=== PATIENT | male | born 1970 | race Caucasian/White ===

== ENCOUNTER 2021-01-12 08:42 | Outpatient (CLI) | payer OTHER, SELFPAY ==
[2021-01-12 18:36] LABS: Basophils Percent Auto 0.6 % (0.2-1.2); Eosinophils Absolute Auto 0.2 K/mm3 (0-0.3); Eosinophils Percent Auto 3.2 % (0-4.4); Hematocrit 45.4 % (42.0-52.0); Hemoglobin 15.1 g/dL (14.0-18.0); Immature Granulocyte Absolute 0.02 K/mm3 (0.00-0.031); Immature Granulocyte Percent A 0.3 % (0-0.5); Lymphocytes Absolute Auto 1.87 K/mm3 (0.9-3.2); Lymphocytes Percent Auto 28.3 % (18.3-44.2); Mean Corpuscular HGB Conc 33.3 g/dl (32-36); Mean Corpuscular Hemoglobin 30.1 pg (26-34); Mean Corpuscular Volume 90.6 fl (80-100); Mean Platelet Volume 9.8 fl (7.4-10.4); Monocytes Absolute Auto 0.5 K/mm3 (0.1-0.6); Neutrophils Absolute Auto 3.9 K/mm3 (1.3-6.7); Neutrophils Percent Auto 59.6 % (45.5-73.1); Platelet Count Result 334 k/mm3 (150-375); Red Blood Count 5.01 M/mm3 (4.6-6.20); Red Cell Distribution Width 12.5 % (11.5-14.5); White Blood Count 6.6 K/mm3 (4.5-10.0)
[2021-01-12 18:39] LABS: Add Urine Microscopic? NO; Appearance Urine Clear (Clear); Bilirubin Urine Negative (Negative); Blood Urine Negative (Negative); Color Urine Yellow (Yellow); Glucose Urine UA Negative (Negative); Ketones Urine Negative (Negative); Leukocyte Esterase Ur Negative LEU/UL (Negative); Nitrate Urine Negative (Negative); Protein Urine Negative (Negative); Specific Grav Ur 1.016 (1.001-1.035); Urobilinogen Urine Negative mg/dL (<2.0)
[2021-01-12 18:52] LABS: Alanine Aminotransferase 33 U/L (4-50); Albumin Level 4.3 g/dL (3.5-5.1); Alkaline Phosphatase 79 U/L (38-126); Anion Gap 9 mmol/L (8-16); Aspartate Amino Transferase 35 U/L (17-59); Bilirubin,Total 0.6 mg/dL (0.2-1.3); Blood Urea Nitrogen 8 mg/dL (9-20); Calcium 9.2 mg/dL (8.4-10.2); Carbon Dioxide 27 mmol/L (22-30); Chloride 102 mmol/L (98-107); Cholesterol 206 mg/dL (0-200); Estimated Glomerular Filt Rate > 60; Glucose 104 mg/dL (65-110); HDL Direct 45 mg/dL; Potassium 3.8 mmol/L (3.4-5.0); Sodium 138 mmol/L (137-145); Triglycerides 125 mg/dL (<150)
[2021-01-12 19:03] LABS: LDL Cholesterol Direct 119 mg/dL
[2021-01-12 19:21] LABS: Thyroid Stimulating Hormone 0.741 uIU/mL (0.465-4.680)
[2021-01-12 19:52] LABS: Vitamin D 25 Hydroxy 26.4 ng/mL
[2021-01-12 19:56] LABS: Folic Acid 3.9 ng/mL (2.76->20)
[2021-01-17 15:19] LABS: Testosterone Free 54.2 pg/mL (35.0-155.0); Testosterone Total 437 ng/dL (250-1100)
== END 2021-01-12 08:43 | disposition home or self-care (01) ==
LOC: ANHBWCLAB 08:43
PROVIDERS: PCP Family Medicine; Visit Provider Family Medicine
DX: I20.1 Angina pectoris with documented spasm (principal); Z13.9 Encounter for screening, unspecified; Z82.49 Family history of ischemic heart disease and other diseases of the circulatory system; Z82.62 Family history of osteoporosis; N99.89 Other postprocedural complications and disorders of genitourinary system; Z79.899 Other long term (current) drug therapy
CPT/HCPCS: 36415; 80053; 80061; 81003; 82306; 82607; 82746; 84402; 84403; 84443; 85025

== ENCOUNTER 2021-05-08 09:43 | Outpatient (RCR) | payer OTHER, SELFPAY ==
[2021-05-08] MEDS: ACETAMINOPHEN 325 MG TABLET 650 MG PO (16:00)
[2021-05-08] MEDS: diphenhydrAMINE HCl CAP 25 MG CAPSULE PO (16:00)
[2021-05-08] MEDS: FAMOTIDINE 20 MG TABLET PO (16:00)
[2021-05-08 16:22] VITALS: BP 101/80; PULSE 96; RESP 14; TEMP 36.8; O2SAT 98
[2021-05-08 17:37] VITALS: BP 106/69
--- NOTE | 2021-05-09 10:10 | PC.NURSE ---
Called Mr Horta and had to leave a message for him to call us back.
== END 2021-05-08 17:00 | disposition home or self-care (01) ==
LOC: AMCINF 09:43
PROVIDERS: PCP Family Medicine; Visit Provider Internal Medicine Hematology & Oncology
DX: U07.1 COVID-19 (principal)
CPT/HCPCS: A9270; M0245; Q0245

== ENCOUNTER 2021-09-10 15:23 | Outpatient (CLI) | payer OTHER, SELFPAY ==
[2021-09-10 18:44] LABS: Hematocrit 45.3 % (42.0-52.0); Hemoglobin 15.2 g/dL (14.0-18.0); Mean Corpuscular HGB Conc 33.6 g/dl (32-36); Mean Corpuscular Hemoglobin 30.6 pg (26-34); Mean Corpuscular Volume 91.3 fl (80-100); Mean Platelet Volume 9.9 fl (7.4-10.4); Platelet Count Result 306 k/mm3 (150-375); Red Blood Count 4.96 M/mm3 (4.6-6.20); Red Cell Distribution Width 12.1 % (11.5-14.5); White Blood Count 6.4 K/mm3 (4.5-10.0)
[2021-09-10 19:03] LABS: Alanine Aminotransferase 39 U/L (4-50); Albumin Level 4.3 g/dL (3.5-5.1); Alkaline Phosphatase 74 U/L (38-126); Anion Gap 9 mmol/L (8-16); Aspartate Amino Transferase 29 U/L (17-59); Bilirubin,Total 0.5 mg/dL (0.2-1.3); Blood Urea Nitrogen 8 mg/dL (9-20); Carbon Dioxide 26 mmol/L (22-30); Chloride 102 mmol/L (98-107); Cholesterol 253 mg/dL (0-200); Estimated Glomerular Filt Rate > 60; Glucose 101 mg/dL (65-110); HDL Direct 45 mg/dL; Potassium 3.8 mmol/L (3.4-5.0); Sodium 137 mmol/L (137-145); Triglycerides 338 mg/dL (<150)
[2021-09-10 19:15] LABS: LDL Cholesterol Direct 137 mg/dL
== END 2021-09-10 15:24 | disposition home or self-care (01) ==
LOC: ANHBWCLAB 15:25
PROVIDERS: PCP Family Medicine; Visit Provider Family Medicine
DX: Z00.00 Encounter for general adult medical examination without abnormal findings (principal); I20.1 Angina pectoris with documented spasm; K52.9 Noninfective gastroenteritis and colitis, unspecified; M19.90 Unspecified osteoarthritis, unspecified site; M54.9 Dorsalgia, unspecified
CPT/HCPCS: 36415; 80053; 80061; 85027

== ENCOUNTER 2022-01-03 07:46 | Outpatient (CLI) | payer OTHER, SELFPAY ==
--- NOTE | 2022-01-03 08:00 | ECHO_ITS ---
Patient Info Name: Jose Enrique Horta Age: 51 years : 1970 Gender: Male Ht: 68 in Wt: 200 lbs BSA: 2.11 m2 HR: 64 bpm BP: 137 / 96 mmHg Technical Quality: Good Exam Date: 01/03/2022 8:23 AM Exam Location: [facility] Patient Status: Outpatient Admit Date: 01/03/2022 Staff Ordering Physician: Deny Haley MD Dry Placer Machine Operator: Lin Jauregui RDCS Attending Provider: Deny Haley MD Referring Physician: Tera ALLEN; Exam Type: CA echo doppler color flow Study Info Indications R00.0 - Tachycardia, unspecified Complete two-dimensional, color flow and Doppler transthoracic echocardiogram is performed. Summary 1. Complete two-dimensional, color flow and Doppler transthoracic echocardiogram is performed. 2. Left ventricular chamber dimension is normal. 3. Left ventricular systolic function is normal, estimated at 60-65%. 4. The left ventricular diastolic function is grade II diastolic dysfunction. 5. E/e' 7 is not elevated. 6. Global longitudinal strain is normal at -17.2%. 7. There is mild aortic valve sclerosis. 8. There is trace tricuspid valve regurgitation. 9. No pulmonary hypertension, estimated pulmonary arterial systolic pressure is 22 mmHg. Left Ventricle E/e' 7 is not elevated. Global longitudinal strain is normal at -17.2%. Left ventricular chamber dimension is normal. Left ventricular systolic function is normal, estimated at 60-65%. The left ventricular diastolic function is grade II diastolic dysfunction. Right Ventricle Right ventricular systolic function is normal and with normal TAPSE 1.7 cm. Right ventricular chamber dimension is normal. Left Atria Left atrial chamber dimension is normal. Right Atria Right atrial chamber dimension is normal. Aortic Valve The aortic valve is trileaflet. There is mild aortic valve sclerosis. There is no aortic valve stenosis. There is no aortic valve regurgitation. Pulmonic Valve There is no pulmonic regurgitation. Mitral Valve There is no mitral valve stenosis. There is no mitral valve regurgitation. Tricuspid Valve There is trace tricuspid valve regurgitation. No pulmonary hypertension, estimated pulmonary arterial systolic pressure is 22 mmHg. Pericardium/Pleural There is no pericardial effusion. Inferior Vena Cava Normal inferior vena cava with >50% collapse upon inspiration consistent with normal right atrial pressure, 5 mmHg. Aorta The aortic root size at the sinus of Valsalva is normal. Left Ventricular Outflow Tract Name Value Normal LVOT 2D LVOT Diameter 2.0 cm LVOT Doppler LVOT Peak Gradient 3 mmHg LVOT Mean Gradient 2 mmHg LVOT VTI 18 cm LVOT VTI/AV VTI Ratio 0.8 LVOT Stroke Volume 60 ml LVOT CO 4.2 l/min LVOT CI 2.0 l/min/m2 Pulmonic Valve Name Value Normal -----
== END 2022-01-03 07:47 | disposition home or self-care (01) ==
PROVIDERS: PCP Family Medicine; Visit Provider Family Medicine
DX: R00.0 Tachycardia, unspecified (principal); I20.1 Angina pectoris with documented spasm; Z13.9 Encounter for screening, unspecified; Z82.49 Family history of ischemic heart disease and other diseases of the circulatory system
CPT/HCPCS: 93306

== ENCOUNTER 2022-02-04 08:26 | Outpatient (CLI) | payer OTHER, SELFPAY ==
--- NOTE | 2022-02-04 08:46 | EST_ITS ---
Patient Info Name: Jose Enrique Horta Age: 51 years : 1970 Gender: Male Ht: 69 in Wt: 200 lbs BSA: 2.12 m2 Exam Date: 02/04/2022 9:58 AM Exam Location: [facility] Stress Patient Status: Outpatient Admit Date: 02/04/2022 Staff Ordering Physician: Kodi Licea DO Attending Provider: Kodi Licea DO Exercise Technologist: Lin Jauregui RDCS Exercise Physician: Kodi Licea DO Exam Type: CA stress test treadmill Study Info Indications R07.9 - Chest pain, unspecified A treadmill exercise stress test was performed. Summary 1. 1. Abnormal Travis exercise stress test for ischemic ST changes by ECG criteria. 2. 2. Due to significant ST depression, stress test terminated early. 3. 3. Appropriate HR response to exercise. 4. 4. Appropriate HR recovery at 1 minute post exercise. 5. 5. Patient informed of the above results. Protocol: Travis Stress ECG Details Stage: REST Duration (min): 0 min : 41 sec Speed (mph): 0.0 Grade (%): 0 HR (bpm): 67 SBP (mmHg): 123 DBP (mmHg): 93 METS: --- Stage: REST Duration (min): 5 min : 18 sec Speed (mph): 0.0 Grade (%): 0 HR (bpm): 81 SBP (mmHg): 123 DBP (mmHg): 93 METS: --- Stage: STAGE 1 Duration (min): 1 min : 0 sec Speed (mph): 1.7 Grade (%): 10 HR (bpm): 104 SBP (mmHg): 123 DBP (mmHg): 93 METS: --- Stage: STAGE 1 Duration (min): 2 min : 0 sec Speed (mph): 1.7 Grade (%): 10 HR (bpm): 110 SBP (mmHg): 123 DBP (mmHg): 93 METS: --- Stage: STAGE 1 Duration (min): 3 min : 0 sec Speed (mph): 1.7 Grade (%): 10 HR (bpm): 121 SBP (mmHg): 130 DBP (mmHg): 86 METS: --- Stage: RECOVERY Duration (min): 0 min : 59 sec Speed (mph): 0.0 Grade (%): 0 HR (bpm): 87 SBP (mmHg): 130 DBP (mmHg): 86 METS: --- Stage: RECOVERY Duration (min): 1 min : 59 sec Speed (mph): 0.0 Grade (%): 0 HR (bpm): 75 SBP (mmHg): 130 DBP (mmHg): 86 METS: --- Stage: RECOVERY Duration (min): 2 min : 59 sec Speed (mph): 0.0 Grade (%): 0 HR (bpm): 72 SBP (mmHg): 163 DBP (mmHg): 91 METS: --- Stage: RECOVERY Duration (min): 3 min : 59 sec Speed (mph): 0.0 Grade (%): 0 HR (bpm): 75 SBP (mmHg): 153 DBP (mmHg): 97 METS: --- Stage: RECOVERY Duration (min): 4 min : 59 sec Speed (mph): 0.0 Grade (%): 0 HR (bpm): 75 SBP (mmHg): 148 DBP (mmHg): 95 METS: --- Stage: RECOVERY Duration (min): 5 min : 59 sec Speed (mph): 0.0 Grade (%): 0 HR (bpm): 83 SBP (mmHg): 148 DBP (mmHg): 95 METS: --- Stage: RECOVERY Duration (min): 6 min : 59 sec Speed (mph): 0.0 Grade (%): 0 HR (bpm): 78 SBP (mmHg): 135 DBP (mmHg): 104 METS: --- Stage: RECOVERY Duration (min): 7 min : 59 sec Speed (mph): 0.0 Grade (%): 0 HR (bpm):
== END 2022-02-04 08:27 | disposition home or self-care (01) ==
PROVIDERS: PCP Family Medicine; Visit Provider Internal Medicine Cardiovascular Disease
DX: R07.9 Chest pain, unspecified (principal)
CPT/HCPCS: 93017

== ENCOUNTER 2022-02-14 02:11 | Day surgery (SDC) | payer OTHER, SELFPAY ==
[2022-02-13 14:50] VITALS: BMI 30.3
[2022-02-14] VITALS (17 sets, daily range): BP systolic 96–139; BP diastolic 70–94; PULSE 70–83; RESP 16; TEMP 36.4–36.6; O2SAT 94–100; BMI 32.1
[2022-02-14 07:28] LABS: Basophils Absolute Auto 0.1 K/mm3 (0.0-0.1); Basophils Percent Auto 0.7 % (0.2-1.2); Eosinophils Absolute Auto 0.3 K/mm3 (0-0.3); Eosinophils Percent Auto 4.8 % (0-4.4); Hematocrit 48.6 % (42.0-52.0); Hemoglobin 16.7 g/dL (14.0-18.0); Immature Granulocyte Absolute 0.04 K/mm3 (0.00-0.031); Immature Granulocyte Percent A 0.6 % (0-0.5); Lymphocytes Absolute Auto 2.45 K/mm3 (0.9-3.2); Lymphocytes Percent Auto 36.7 % (18.3-44.2); Mean Corpuscular HGB Conc 34.4 g/dl (32-36); Mean Corpuscular Hemoglobin 30.7 pg (26-34); Mean Corpuscular Volume 89.3 fl (80-100); Mean Platelet Volume 8.9 fl (7.4-10.4); Monocytes Absolute Auto 0.8 K/mm3 (0.1-0.6); Monocytes Percent Auto 11.4 % (2.6-8.5); Neutrophils Absolute Auto 3.1 K/mm3 (1.3-6.7); Neutrophils Percent Auto 45.8 % (45.5-73.1); Platelet Count Result 290 k/mm3 (150-375); Red Blood Count 5.44 M/mm3 (4.6-6.20); Red Cell Distribution Width 12.4 % (11.5-14.5); White Blood Count 6.7 K/mm3 (4.5-10.0)
[2022-02-14 07:48] LABS: Anion Gap 14 mmol/L (8-16); Blood Urea Nitrogen 11 mg/dL (9-20); Calcium 9.1 mg/dL (8.4-10.2); Carbon Dioxide 28 mmol/L (22-30); Chloride 101 mmol/L (98-107); Cholesterol 229 mg/dL (0-200); Estimated CRCL calculation 122 ml/min; Estimated Glomerular Filt Rate > 60; Glucose 103 mg/dL (65-110); HDL Direct 46 mg/dL; Potassium 3.5 mmol/L (3.4-5.0); Sodium 143 mmol/L (137-145); Triglycerides 259 mg/dL (<150)
[2022-02-14 07:59] LABS: LDL Cholesterol Direct 124 mg/dL
--- NOTE | 2022-02-14 08:38 | WPDHPUPDATE1 ---
History and Physical Update Update Date/Time: 02/14/22 08:38 History and Physical has been reviewed, including an updated exam of the patient. There are NO changes in the patient's condition. Risks, benefits, and alternatives have been discussed and questions answered. Patient agrees to proceed with procedure.
--- NOTE | 2022-02-14 08:39 | WPDMODSED ---
Moderate Sedation Note-Pt Data Patient Data Diagnosis: Abnormal stress test Present Complaint: Abnormal stress test Procedure to be performed/Plan: Cardiac catheterization Allergies Allergy/AdvReac Type Severity Reaction Status Date / Time No Known Allergies Allergy Verified 02/14/22 07:22 Home Medications Medication Instructions Recorded Confirmed Type ibuprofen 200 mg tablet (Advil) 200 mg PO Q6H PRN Back Pain 10/27/20 02/13/22 History morphine 15 mg capsule 15 mg PO TID 10/27/20 02/13/22 History oxycodone-acetaminophen 10 mg-325 1 tablet PO Q8H 10/27/20 02/13/22 History mg tablet omega 4-jsl-zpe-fish oil 1,000 mg 1 cap PO DAILY 01/11/22 02/13/22 History (120 mg-180 mg) capsule (Fish Oil) pravastatin 20 mg tablet 20 mg PO DAILY #30 tabs 01/11/22 02/13/22 Rx aspirin 81 mg tablet,delayed 81 mg PO DAILY 02/04/22 02/13/22 History release (Adult Aspirin Regimen) Current Medications: Active Medications Sodium Chloride (Normal Saline Iv) 500 mls @ 100 mls/hr IV CONT .Q5H SARBJIT Sedation/Anesthesia: No previous sedation/anesthesia problems (including family history). [facility] Past Medical History Medical History Back pain Colitis Osteoarthritis Family History Family History Mother Hypertension Heart problem Sibling Heart problem Hypertension Grandparent Heart problem Social History Social History Smoking status: Never smoker Tobacco type: smokeless tobacco Smokeless tobacco user: chewing tobacco Alcohol intake: current Substance use: never Spiritual care concerns: No Mod Sed Physical Exam Physical Exam Pre Procedural Exam: Normal: Appearance, Lungs, Heart Rate, Heart Rhythm, Neuro Exam, Abdomen, Extremities and Skin Hours since solid foods: 8 Hours since liquid intake: 8 Mallampati Classification: class III Internal Medicine - PN: Obj Da Vital Signs Vital Signs: Vital Signs - 24 hr 02/14/22 07:25 Temperature 36.6 C Pulse Rate 83 Respiratory Rate 16 Blood Pressure 139/94 H Pulse Oximetry 100 Oxygen Delivery Room Air Meds/Results Medications: Active Medications Generic Name Dose Route Start Last Admin Trade Name Maxq PRN Reason Stop Dose Admin Sodium Chloride 500 mls @ 100 mls/hr 02/14/22 07:00 Normal Saline Iv IV CONT .Q5H SARBJIT Labs CBC & Chem 7: 02/14/22 07:20 02/14/22 07:20 Labs: Laboratory Results - last 24 hr 02/14/22 02/14/22 07:20 07:20 WBC 6.7 RBC 5.44 Hgb 16.7 Hct 48.6 MCV 89.3 MCH 30.7 MCHC 34.4 RDW 12.4 Plt Count 290 MPV 8.9 Immature Gran % (Auto) 0.6 H Neut % (Auto) 45.8 Lymph % (Auto) 36.7 [place] % (Auto) 11.4 H Eos % (Auto) 4.8 H Baso % (Auto) 0.7 Lymph # (Auto) 2.45 [place] # (Auto) 0.8 H Eos # (Auto) 0.3 Baso # (Auto) 0.1 Abs Immat Gran (auto) 0.04 H Absolute Neuts (auto) 3.1 Absolute Nucleated RBC 0.0 Nucleated RBC % 0.0 Sodium 143 Potassium 3.5 Chloride 101 Carbon Dioxide 28 Anion Gap 14 BUN 11 Creatinine 0.70 Estim Creat Clear Calc 122 Estimated GFR > 60 Glucose 103 Calcium 9.1 Triglycerides 259 H Cholesterol 229 H LDL Cholesterol Direct 124 HDL Direct 46 ASA Classification/Sedation ASA Classification/Sedation ASA Class: II Emergent: No Risks: Risks, benefits and alternatives explained and patient/family accepted plan for sedation. Patient re-evaluated immediately prior to sedation.
--- NOTE | 2022-02-14 09:59 | ECG_ITS ---
Measurements Intervals [place] Rate: 76 P: 24 GA: 199 QRS: 16 QRSD: 87 T: -7 QT: 376 QTc: 423 Interpretive Statements SINUS RHYTHM RSR' IN V1 OR V2, PROBABLY NORMAL VARIANT CONSIDER INFERIOR INFARCT, AGE INDETERMINATE ABNORMAL ECG NO PREVIOUS ECG AVAILABLE FOR COMPARISON Electronically Signed On 02-14-2022 10:22:53 CDT by Kodi Licea D.O.
[2022-02-14] MEDS: SODIUM CHLORIDE 0.9% IV 500 ML 100 ML IV CONT (10:45)
--- NOTE | 2022-02-14 13:45 | SUR.PHASEII ---
iv d/c tip intact. education given to patient with at bedside. written education/dc instruction/new prescriptions/and work excuse note given to patient. he is able to ambulate in room with out difficulty. restrictions on right wrist/hand given and patient verbalizes understanding. all questions and concerns addressed. patient taken via wheelchair to personal vehicle with driving.
--- NOTE | 2022-02-15 13:55 | WPDCARDPROC ---
Cardiac Cath Procedure Note Date of procedure:: 02/14/22 Performing physician:: CATHETERIZATION LABORATORY REPORT Procedure Date: 02/14/2022 Associate Sales Representative: Ivonne Feliciano M.D., [facility]? Referring Physician: Dr. Licea ? Anesthesia: Versed and Fentanyl were ordered and given in my presence at 09:05, procedure ended at 09:36. Supervision of nurse monitored moderate sedation with Versed and Fentanyl was provided for 31 minutes. A total of Versed 3mg and Fentanyl 75mcg were given by the microbiology lab manager RN. Pre-op Diagnosis: Coronary artery disease Post-op Diagnosis: Multivessel coronary artery disease Procedure(s): Coronary angiography Access Site: Right radial artery Brief History and Clinical Indications: Patient is a 51-year-old male with a history of hyperlipidemia with chest pain and abnormal treadmill stress test. All risks, benefits and alternatives to left heart catheterization with or without percutaneous coronary intervention was discussed at length with the patient. Risk of complications including but not limited to bleeding, infection, arrhythmia, stroke, worsening kidney function, blood loss, groin hematoma, limb loss, emergency coronary artery bypass grafting, and even were discussed with the patient and all questions were answered. The patient understood and wished to proceed. Time out called, patient name, date of , medical record number, allergies, procedure performed, identify Associate Sales Representative, patient and staff member concurred with accurate data, procedure carried on. Findings: LEFT HEART CATHETERIZATION FINDINGS: 1. Left main: The left main coronary artery is patent without any significant obstructive disease. 2. Left anterior descending: The LAD is a diffusely diseased vessel. Diagonal-1 has a high proximal origin off the LAD and is of small caliber; this vessel is diffusely diseased. The proximal-mid LAD has significant disease of 80-90%. 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 Diagonal-2 is a bifurcating vessel. The upper branch has a significant 90% ostial stenosis; rest of the branch is diffusely disease. The lower branch has significant 80% diffuse disease in its proximal-mid portion. The mid LAD is diffusely diseased with tandem lesions. The distal LAD is diffusely disease. 3. Left circumflex: The proximal LCX has mild diffuse disease. The mid LCX has a significant 80-90% long stenosis. The LCX bifurcates in the mid-distal vessel. Both branches are diffusely diseased with 90-95% stenoses. 4. Right coronary artery: The RCA is the dominant vessel. The RCA is LAUNCH CHECK OUT in its mid-portion. The distal RCA and RPDA are filled via well-formed hyki-oh-srdc and rjxev-gq-vgyzl collaterals. Description of Procedure: Informed consent signed and placed in the chart. Patient transferred to microbiology lab manager room. Prepped and draped in usual sterile fashion. 2% lidocaine injected subcutaneously in right wrist area. 22-gauge venipuncture catheter used to access the right radial artery with the Seldinger technique. 6-FR slender sheath placed in right radial artery. Cocktail of Nitroglycerin and Cardene was given intraarterial through the sheath. Versacore wire advanced under fluoroscopy 5F Tig 4 diagnostic catheter engaged Left Main Coronary Artery. 5F Tig 4 diagnostic catheter engaged Right Coronary Artery Multiple orthogonal angiogram obtained and reviewed. During angiogram of the RCA, patient went into polymorphic ventricular tachycardia. Patient was shocked x 1 with orthodox of sinus rhythm. Blood pressure was stable. No further arrhythmia events during procedure. Remained hemodynamically stable. Unable to cross LV with Tig catheter and Pigtail catheter. Hemostasis was achieved by application of TR band. ? Assessment: Multivessel coronary artery disease Post Operative Condition: Stable No significant blood loss Disposition: Home Plan: The patient will be monitored in the recovery are
== END 2022-02-14 13:46 | disposition home or self-care (01) ==
PROVIDERS: PCP Family Medicine; Visit Provider Internal Medicine
PROC: 4A023N7 Measurement of Cardiac Sampling and Pressure, Left Heart, Percutaneous Approach (ICD-10-PCS; CPT 93452; principal; 2022-02-14 08:30)
DX: I25.10 Atherosclerotic heart disease of native coronary artery without angina pectoris (principal); R07.89 Other chest pain; R06.00 Dyspnea, unspecified; Z86.16 Personal history of COVID-19; I51.89 Other ill-defined heart diseases; E78.5 Hyperlipidemia, unspecified; R94.39 Abnormal result of other cardiovascular function study
CPT/HCPCS: 36415; 80048; 80061; 85025; 93005; 93458; A9270; C1769; C1887; C1894; J1644; J2250; J3010; J7030; J7040

== ENCOUNTER 2022-03-01 12:24 | Outpatient (CLI) | payer OTHER, SELFPAY ==
--- NOTE | 2022-03-01 | ECHO_ITS ---
Patient Info Name: Jose Enrique Horta Age: 51 years : 1970 Gender: Male Ht: 69 in Wt: 213 lbs BSA: 2.20 m2 HR: 68 bpm BP: 129 / 93 mmHg Heart Rhythm: Sinus Rhythm Technical Quality: Fair Exam Date: 03/01/2022 12:59 PM Exam Location: [facility] Patient Status: Outpatient Admit Date: 03/01/2022 Staff Ordering Physician: BarbaraKolby MD Nicu Rn: Ina Velázquez RDCS Attending Provider: Barbara, Kolby Cooper MD Referring Physician: Barbara HENDERSON; Exam Type: CA echo doppler color flow Study Info Indications - coronary artery disease of [place] heart with stable angina pectoris, Complete two-dimensional, color flow and Doppler transthoracic echocardiogram is performed. Strain analysis performed. Summary 1. Complete two-dimensional, color flow and Doppler transthoracic echocardiogram is performed. 2. Left ventricular chamber dimension is mildly enlarged. 3. Left ventricular systolic function is normal, estimated at 55-60%. 4. The left ventricular diastolic function is grade II diastolic dysfunction. 5. E/e' 7 is not elevated. 6. Global longitudinal strain is abnormal at -15.7%. 7. Left atrial chamber dimension is mildly enlarged. 8. There is mild aortic valve sclerosis. 9. There is trace mitral valve regurgitation. 10. There is trace tricuspid valve regurgitation. 11. No pulmonary hypertension, estimated pulmonary arterial systolic pressure is 18 mmHg. Left Ventricle E/e' 7 is not elevated. Global longitudinal strain is abnormal at -15.7%. Left ventricular chamber dimension is mildly enlarged. Left ventricular systolic function is normal, estimated at 55-60%. The left ventricular diastolic function is grade II diastolic dysfunction. Right Ventricle Right ventricular systolic function is normal and with normal TAPSE 2.3 cm. Right ventricular chamber dimension is normal. Left Atria Left atrial chamber dimension is mildly enlarged. Right Atria Right atrial chamber dimension is normal. Aortic Valve The aortic valve is trileaflet. There is mild aortic valve sclerosis. There is no aortic valve stenosis. There is no aortic valve regurgitation. Pulmonic Valve There is no pulmonic regurgitation. Mitral Valve There is no mitral valve stenosis. There is trace mitral valve regurgitation. Tricuspid Valve There is trace tricuspid valve regurgitation. No pulmonary hypertension, estimated pulmonary arterial systolic pressure is 18 mmHg. Pericardium/Pleural There is no pericardial effusion. Inferior Vena Cava Normal inferior vena cava with >50% collapse upon inspiration consistent with normal right atrial pressure, 5 mmHg. Aorta The aortic root size at the sinus of Valsalva is normal. Left Ventricular Outflow Tract Name Value Normal LVOT 2D LVOT Diameter 2.0 cm LVOT Doppler LVOT Peak Gradient 3 mmHg LVOT Mean Gradient 1 mmHg LVOT VTI 16 cm LVOT VTI/AV VTI Ratio 0.6 LVOT Stroke Volume 53 ml Pulm
== END 2022-03-01 12:25 | disposition home or self-care (01) ==
PROVIDERS: PCP Family Medicine; Visit Provider Thoracic Surgery (Cardiothoracic Vascular Surgery)
DX: I25.118 Atherosclerotic heart disease of native coronary artery with other forms of angina pectoris (principal)
CPT/HCPCS: 93306

== ENCOUNTER 2022-08-05 16:30 | Outpatient (RCR) | payer OTHER, SELFPAY ==
[2022-05-31 15:41] VITALS: PULSE 87
== END 2022-09-16 18:24 | disposition home or self-care (01) ==
LOC: ANHCPREHAB 16:30
PROVIDERS: PCP Family Medicine; Visit Provider Internal Medicine Cardiovascular Disease
DX: Z95.1 Presence of aortocoronary bypass graft (principal)
CPT/HCPCS: 93798

== ENCOUNTER 2022-08-08 08:34 | Observation (INO) | payer OTHER, SELFPAY ==
[2022-08-08] VITALS (9 sets, daily range): BP systolic 100–140; BP diastolic 65–86; PULSE 69–102; RESP 14–21; TEMP 35.8–37.7; O2SAT 94–100; BMI 31.6
--- NOTE | ~2022-08-08 | US_ITS ---
Duplex Sonography of the right extremity: Indication: Swelling Findings: Sagittal and transverse B-mode images as well as color-flow imaging were performed on the r ight femoral and popliteal veins. B-mode examination was done without and with compression in the tr ansverse plane. There is good visualization of the common femoral, proximal profunda femoral, superf icial femoral, greater saphenous, and popliteal veins. Normal flow was seen on color-flow imaging. N ormal compressibility was demonstrated. Right posterior tibial, peroneal, and gastrocnemius veins are also patent. Impression: No evidence of deep vein thrombosis involving the right lower extremity. Reviewed, dictated and finalized at location M. Impression: No evidence of deep vein thrombosis involving the right lower extremity.
--- NOTE | 2022-08-08 09:08 | ED.EXTPRO ---
HPI - Extremity Problem General Chief complaint: Extremity Problem,Nontraumatic <Clarita Alcantara PA-C - Last Filed: 08/08/22 11:03> Stated complaint: Right leg redness and swelling <Clarita Alcantara PA-C - Last Filed: 08/08/22 11:03> Time Seen by Provider: 08/08/22 08:53 <Clarita Alcantara PA-C - Last Filed: 08/08/22 11:03> History of Present Illness HPI Narrative: Patient is a 51-year-old male who is 3 months status post 4 vessel CABG here for evaluation of redness, swelling and pain to his right lower extremity near the access point for his vein. Patient states his symptoms started yesterday. He additionally reports fevers, nausea, generalized weakness and fatigue x3 days. He had his CABG at [facility] [place] by Dr. Jimenez. He has not been in contact with his surgeon regarding the symptoms. Currently completing cardiac rehab. No history of diabetes. <Clarita Alcantara PA-C - Last Filed: 08/08/22 11:03> Related Data Home medications: Home Medications Medication Instructions Recorded Confirmed aspirin 81 mg tablet,delayed 81 mg PO DAILY 02/04/22 08/08/22 release (Adult Aspirin Regimen) clopidogrel 75 mg tablet 75 mg PO DAILY 05/03/22 08/08/22 gabapentin 300 mg capsule 300 mg PO TID 05/03/22 08/08/22 methocarbamol 750 mg tablet 750 mg PO TID 05/03/22 08/08/22 metoprolol tartrate 25 mg tablet 25 mg PO BID 05/03/22 08/08/22 oxycodone-acetaminophen 10 mg-325 1 tablet PO TID 05/31/22 08/08/22 mg tablet atorvastatin 80 mg tablet 80 mg PO HS 08/08/22 08/08/22 docusate sodium 100 mg capsule 100 mg PO BID 08/08/22 08/08/22 (Colace) ibuprofen 200 mg tablet (Advil) 400 mg PO 1200 08/08/22 08/08/22 morphine 15 mg tablet,extended 15 mg PO TID 08/08/22 08/08/22 release <CHELY Bauer Last Filed: 08/08/22 11:03> Allergies/Adverse reactions: Allergies Allergy/AdvReac Type Severity Reaction Status Date / Time No Known Allergies Allergy Verified 08/08/22 13:25 <Clarita Alcantara PA-C - Last Filed: 08/08/22 11:03> Review of Systems Review of Systems: Gen.: Reports fevers and weakness Eyes: Denies eye pain or visual change ENT: Denies congestion Respiratory: Denies shortness of breath or cough CV: Denies chest pain or palpitations GI: Denies abdominal pain nausea, emesis or diarrhea denies burning, urgency, frequency or hematuria Musculoskeletal: Reports pain in the right lower extremity Neuro: Denies numbness, tingling, weakness or focal weakness Skin: Denies rash Except as documented, all other systems reviewed and negative <Clarita Alcantara PA-C - Last Filed: 08/08/22 11:03> [facility] Past Medical History Medical History: Medical History Anxiety Back pain CAD (coronary artery disease) CAD (coronary artery disease), autologous vein bypass graft Chest pain Colitis COVID-19 Variant angina <lCarita Alcantara PA-C - Last Filed: 08/08/22 11:03> Surgical History Surgical History: Surgical History S/P CABG x 4 <Clarita Alcantara PA-C - Last Filed: 08/08/22 11:03> Family History Family History: Family History Mother Heart problem Hypertension Hyperlipidemia Acute myocardial infarction Diabetes mellitus Sibling Heart problem Hypertension Cerebrovascular accident Grandparent Heart problem Father Pulmonary disease <Clarita Alcantara PA-C - Last Filed: 08/08/22 11:03> Social History Social History: Social History Social History: Patient lives with his Nenita and they have 6 kids which 3 are adopted. The youngest of the kids are 5 years old. They have several pets including 2 dogs, 1 cat, and several fish. Patient elects his Nenita to b
[2022-08-08] MEDS: HYDROcodone/acetaminophen (*CRX) 5-325 MG TABLET 1 TAB PO (09:26)
[2022-08-08] MEDS: SODIUM CHLORIDE 0.9% IV 1,000 ML 999 ML IV CONT (09:27)
[2022-08-08] MEDS: ceFAZolin 1 GM/NS 50 ML 1 GM/50 ML BAG IVPB ×3 (09:29→21:28)
[2022-08-08 09:31] LABS: Basophils Percent Auto 0.2 % (0.2-1.2); Eosinophils Percent Auto 0.1 % (0-4.4); Hematocrit 40.8 % (42.0-52.0); Hemoglobin 13.9 g/dL (14.0-18.0); Immature Granulocyte Absolute 0.07 K/mm3 (0.00-0.031); Immature Granulocyte Percent A 0.5 % (0-0.5); Lymphocytes Absolute Auto 1.01 K/mm3 (0.9-3.2); Lymphocytes Percent Auto 6.7 % (18.3-44.2); Mean Corpuscular HGB Conc 34.1 g/dl (32-36); Mean Corpuscular Hemoglobin 29.6 pg (26-34); Mean Platelet Volume 8.9 fl (7.4-10.4); Monocytes Absolute Auto 0.8 K/mm3 (0.1-0.6); Monocytes Percent Auto 5.1 % (2.6-8.5); Neutrophils Absolute Auto 13.2 K/mm3 (1.3-6.7); Neutrophils Percent Auto 87.4 % (45.5-73.1); Platelet Count Result 247 k/mm3 (150-375); Red Blood Count 4.69 M/mm3 (4.6-6.20); Red Cell Distribution Width 14.2 % (11.5-14.5); White Blood Count 15.1 K/mm3 (4.5-10.0)
[2022-08-08 09:44] LABS: Lactic Acid Reflex 0.9 mmol/L (0.7-2.0)
[2022-08-08 09:45] LABS: Alanine Aminotransferase 39 U/L (6-50); Albumin Level 4.3 g/dL (3.5-5.1); Alkaline Phosphatase 87 U/L (38-126); Anion Gap 6 mmol/L (8-16); Aspartate Amino Transferase 32 U/L (17-59); Bilirubin,Total 1.2 mg/dL (0.2-1.3); Blood Urea Nitrogen 8 mg/dL (9-20); Calcium 8.6 mg/dL (8.4-10.2); Carbon Dioxide 25 mmol/L (22-30); Chloride 103 mmol/L (98-107); Estimated CRCL calculation 170 ml/min; Estimated Glomerular Filt Rate > 60; Glucose 128 mg/dL (65-110); Sodium 134 mmol/L (137-145)
[2022-08-08] MEDS: POTASSIUM CHLORIDE 20 MEQ PACKET (FOR LIQUID) 40 MEQ PO (10:43)
[2022-08-08 11:50] LABS: SARS-CoV-2 RNA PCR Negative
--- NOTE | 2022-08-08 12:35 | PC.NURSE ---
This patient, Jose Enrique Horta, was admitted to [facility] Surg Room 315-01. Patient/family oriented to hospital policies and general routines including ID bracelet, bed and alarms, visiting hours, pain management, procedures, bathroom and other care routines, personal items, smoking policy, room service/diet, and visiting hours. Information on how to activate the Rapid Response Team has been discussed. Patient/Family are encouraged to report perceived risks to care and to ask questions if they do not understand what they are told or what they should do.
--- NOTE | 2022-08-08 13:00 | PM.IMHP ---
H&P: HPI History of Present Illness Date/Time: 08/08/22 Chief Complaint: Right leg redness and swelling Narrative: Patient is a 51-year-old male with a past medical history of CAD with CABG x4, hyperlipidemia who presented to the ED with complaints right lower extremity swelling, redness, and pain. Patient stated that it all started yesterday. He stated that he went to work and he was feeling really ran down and sick and started to have nausea vomiting. He went home early and when he got home they checked his temperature And it was 102.8. patient's did state that she had been taking his temperature throughout the evening and night and his temperature was 99.9-102. She did give him Advil to help to break the fever however was unsuccessful. Patient stated that he was so weak and tired that he was able to take a shower and went to sleep when he got home. He stated that he did wake up until this morning and this morning he felt the same way. When he got dressed this morning he noticed that his leg was red swollen and hot at the site of where they harvested vein for the CABG. He stated that he was slightly short of breath yesterday and he was experiencing some dizziness with blurred vision especially with standing. He denies any chest pain, diarrhea, constipation, urinary dysfunction including urgency, frequency, pain or burning, abdominal pain. he did state that he has been very weak and tired. He also stated that his urine did look like apple cider and was very dark. Patient's Nenita was present as well. Patient does have a history of back pain which was stated that he has quite a few disc issues. Patient is on quite a bit of pain medications and constipation is normal for him. Currently patient is comfortable. He did state that his pain is tolerable as long as nobody touches his leg. He also stated that he just does not feel good he is very tired at this time. Patient is being admitted to the hospitalist service under observation Review of Systems Review of Systems: All systems reviewed & are unremarkable except as noted in HPI and below PMFSH Past Medical History Medical History Anxiety Back pain CAD (coronary artery disease) CAD (coronary artery disease), autologous vein bypass graft Chest pain Colitis COVID-19 Variant angina Surgical History Surgical History S/P CABG x 4 Family History Family History Mother Heart problem Hypertension Hyperlipidemia Acute myocardial infarction Diabetes mellitus Sibling Heart problem Hypertension Cerebrovascular accident Grandparent Heart problem Father Pulmonary disease Social History Social History Social History: Patient lives with his Nenita and they have 6 kids which 3 are adopted. The youngest of the kids are 5 years old. They have several pets including 2 dogs, 1 cat, and several fish. Patient elects his Nenita to be his surrogate, and wishes to be a full code at this time. Smoking status: Never smoker Tobacco type: smokeless tobacco Smokeless tobacco user: chewing tobacco Second hand tobacco smoke exposure: Yes (father smoked until Jose Enrique was 17) Additional smoking assessment comments: Quit tobacco of 30 year about 1.5 years ago Alcohol intake: never Substance use: never Lack of Transportation: No Lack of Food: Never True Current Housing: I Have Housing Concerned About Future Housing: No Difficulty Paying Gas/Electric Bills: No Difficulty Paying for Meds: No Currently Unemployed: No Education: High School Diploma/GED Difficulty w/ Childcare or Family Care: No Living arrangements: with family 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
[2022-08-08] MEDS: MORPHINE SULFATE (*CRX) 15 MG TABCR PO ×2 (14:20→21:28)
[2022-08-08] MEDS: ONDANSETRON INJ 4 MG/2 ML VIAL IV PUSH (14:57)
[2022-08-08] MEDS: GABAPENTIN 300 MG CAPSULE PO ×2 (15:01→21:28)
[2022-08-08] MEDS: DOCUSATE SODIUM 100 MG CAPSULE PO (17:54)
[2022-08-08] MEDS: methocarbamoL 750 MG TABLET PO (17:54)
[2022-08-08] MEDS: oxyCODONE/ACETAMINOPHEN (*CRX) 10-325 MG TABLET 1 TAB PO (17:55)
[2022-08-08] MEDS: ATORVASTATIN 40 MG TABLET 80 MG PO (21:28)
[2022-08-08] MEDS: METOPROLOL TARTRATE 25 MG TABLET PO (21:28)
[2022-08-09 03:32] VITALS: BP 100/69; PULSE 72; RESP 18; TEMP 36.6; O2SAT 97
[2022-08-09] MEDS: MORPHINE SULFATE (*CRX) 15 MG TABCR PO (06:26)
[2022-08-09] MEDS: ceFAZolin 1 GM/NS 50 ML 1 GM/50 ML BAG IVPB ×2 (06:26→11:14)
[2022-08-09] MEDS: GABAPENTIN 300 MG CAPSULE PO ×2 (06:26→11:19)
[2022-08-09 07:01] LABS: Basophils Percent Auto 0.2 % (0.2-1.2); Eosinophils Absolute Auto 0.2 K/mm3 (0-0.3); Eosinophils Percent Auto 2.5 % (0-4.4); Hematocrit 40.8 % (42.0-52.0); Hemoglobin 13.3 g/dL (14.0-18.0); Immature Granulocyte Absolute 0.03 K/mm3 (0.00-0.031); Immature Granulocyte Percent A 0.3 % (0-0.5); Lymphocytes Absolute Auto 1.65 K/mm3 (0.9-3.2); Lymphocytes Percent Auto 18.9 % (18.3-44.2); Mean Corpuscular HGB Conc 32.6 g/dl (32-36); Mean Corpuscular Hemoglobin 28.7 pg (26-34); Mean Corpuscular Volume 88.1 fl (80-100); Monocytes Absolute Auto 0.9 K/mm3 (0.1-0.6); Neutrophils Absolute Auto 5.9 K/mm3 (1.3-6.7); Neutrophils Percent Auto 68.1 % (45.5-73.1); Platelet Count Result 220 k/mm3 (150-375); Red Blood Count 4.63 M/mm3 (4.6-6.20); White Blood Count 8.7 K/mm3 (4.5-10.0)
[2022-08-09 07:08] LABS: Alanine Aminotransferase 39 U/L (6-50); Albumin Level 3.9 g/dL (3.5-5.1); Alkaline Phosphatase 90 U/L (38-126); Anion Gap 4 mmol/L (8-16); Aspartate Amino Transferase 37 U/L (17-59); Bilirubin,Total 0.7 mg/dL (0.2-1.3); Blood Urea Nitrogen 4 mg/dL (9-20); Calcium 8.4 mg/dL (8.4-10.2); Carbon Dioxide 27 mmol/L (22-30); Chloride 107 mmol/L (98-107); Estimated CRCL calculation 144 ml/min; Estimated Glomerular Filt Rate > 60; Glucose 112 mg/dL (65-110); Magnesium 2.1 mg/dL (1.6-2.3); Potassium 3.5 mmol/L (3.4-5.0); Sodium 138 mmol/L (137-145)
[2022-08-09] MEDS: CLOPIDOGREL BISULFATE 75 MG TABLET PO (08:54)
[2022-08-09] MEDS: methocarbamoL 750 MG TABLET PO ×2 (08:54→11:19)
[2022-08-09] MEDS: ENOXAPARIN 40 MG/0.4 ML SYRINGE SUB-Q (08:54)
[2022-08-09] MEDS: ASPIRIN 81 MG ENTERIC TABLET PO (08:54)
[2022-08-09] MEDS: DOCUSATE SODIUM 100 MG CAPSULE PO (08:54)
[2022-08-09] MEDS: METOPROLOL TARTRATE 25 MG TABLET PO (08:55)
[2022-08-09] MEDS: oxyCODONE/ACETAMINOPHEN (*CRX) 10-325 MG TABLET 1 TAB PO ×2 (08:56→11:19)
--- NOTE | 2022-08-09 10:15 | PM.DS ---
DS: Admitting Diagnosis Discharge Date 08/09/22 1015 Admitting Diagnosis Cellulitis of the right lower extremity DS: Discharge Diagnosis Discharge Diagnosis (1) Cellulitis of right leg: Code(s): L03.115 - Cellulitis of right lower limb Status: Acute Assessment and Plan: Complaints and presentation of reddening, swelling, and pain of the right lower extremity Venous doppler performed and showed no DVT involving the right lower extremity Continue ancef and vanco from the ED Pain medications ordered WBC elevated at 15.1 Continue to trend labs Adjust therapy as indicated (2) CAD (coronary artery disease), autologous vein bypass graft: Code(s): I25.810 - Atherosclerosis of coronary artery bypass graft(s) without angina pectoris Status: Acute Assessment and Plan: S/P CABG x 4 Continue home aspirin, metoprolol, plavix, and atorvastatin Stable at this time No complaints of chest pain, or shortness of breath (3) Dyslipidemia: Code(s): E78.5 - Hyperlipidemia, unspecified Status: Acute Assessment and Plan: Stable and chronic Continue atorvastatin 80mg PO daily (4) Chronic pain: Code(s): G89.29 - Other chronic pain Status: Acute Assessment and Plan: Related to back pain Continue home medications add morphine IV for break through pain Trend pain scale numbers Adjust medication as indicated Plan 72 minutes DS: Summary Hospital Course Hospital Course: Patient is a 51-year-old male with a past medical history of CAD with CABG x4, hyperlipidemia who presented to the ED with complaints right lower extremity swelling, redness, and pain. patient stated that it all started on Friday when he went home from work and noted that he had a fever. It only got worse yesterday and patient said to come into the hospital for further treatment. Patient upon arrival did note to have warmth, swelling, redness and pain to the right lower extremity. Patient was started on vancomycin and Ancef. white blood cell count was also noted to be slightly elevated. Today patient leg looks less red and is not as warm or swollen. Patient feels better today and stated that the pain is a lot better as well. He currently denies any chest pain, shortness a breath, nausea, vomiting, diarrhea or constipation. He rates his pain currently as a 1 or 2. Did have a long conversation about Bactrim and the antibiotic side effects and patient verbalized understanding. Patient wishes to go home and has been given strict instructions of when to return. patient's was also present and stated that she would watch for the redness and swelling and tenderness. Did speak to the ID pharmacist who also agreed with Bactrim for 10 days. Patient stable for discharge per labs and vital signs. Status at Discharge Functional status at discharge: independent ambulation Overall status at discharge: patient is progressing back to baseline Time Spent with Patient Time attestation: Total time spent providing and/or coordinating discharge services: 56 minutes Time spent: Greater than 30 minutes Specific discharge activities: Diagnostic testing, chart review, developing a treatment plan, education, care coordination documentation, physical exam, result review Exam Narrative: General: well-nourished, well-appearing 51-year-old male, laying in bed, comfortable, NARD Neuro: awake, alert and oriented x4, speech clear, no focal neuro deficits noted HEENMT: normocephalic, atraumatic, EOMI, sclerae anicteric, moist oral mucosa Respiratory: Clear to auscultation bilaterally without crackles, rhonchi or wheezes, nonlabored breathing Cardio: regular rate, regular rhythm with S1-S2 Abdomen: nondistended, normoactive bowel sounds, soft, nontender to palpation Extremities: no edema, erythema, or tenderness to palpation, DP pulses 2+ bilaterally, bl
[2022-08-09] MEDS: IBUPROFEN 400 MG TABLET PO (11:19)
== END 2022-08-09 15:06 | disposition home or self-care (01) ==
LOC: ANHED 11:03 → ANH3MEDSUR 14:10
PROVIDERS: Nurse Practitioner; Admitting Provider Internal Medicine; Emergency Provider Physician Assistant; PCP Family Medicine; Visit Provider Chiropractor
DX: L03.115 Cellulitis of right lower limb (principal); I25.10 Atherosclerotic heart disease of native coronary artery without angina pectoris; Z95.1 Presence of aortocoronary bypass graft; E78.5 Hyperlipidemia, unspecified; G89.29 Other chronic pain; M54.9 Dorsalgia, unspecified; Z20.822 Contact with and (suspected) exposure to COVID-19; D72.829 Elevated white blood cell count, unspecified; M19.90 Unspecified osteoarthritis, unspecified site; F17.220 Nicotine dependence, chewing tobacco, uncomplicated; Z86.16 Personal history of COVID-19; Z79.899 Other long term (current) drug therapy; Z79.82 Long term (current) use of aspirin; Z79.02 Long term (current) use of antithrombotics/antiplatelets; Z79.1 Long term (current) use of non-steroidal anti-inflammatories (NSAID); Z79.891 Long term (current) use of opiate analgesic; Z82.49 Family history of ischemic heart disease and other diseases of the circulatory system; Z83.438 Family history of other disorder of lipoprotein metabolism and other lipidemia
CPT/HCPCS: 36415; 80053; 83605; 83735; 85025; 87040; 93971; 96365; 96366; 96367; 96372; 96375; 99285; A9270; G0378; J0690; J1650; J2405; J3370; J7030; U0003; U0005

== ENCOUNTER 2022-09-16 07:14 | Outpatient (CLI) | payer OTHER, SELFPAY ==
[2022-09-16 17:52] LABS: Basophils Percent Auto 0.6 % (0.2-1.2); Eosinophils Absolute Auto 0.2 K/mm3 (0-0.3); Eosinophils Percent Auto 3.2 % (0-4.4); Hematocrit 46.9 % (42.0-52.0); Hemoglobin 14.8 g/dL (14.0-18.0); Immature Granulocyte Absolute 0.03 K/mm3 (0.00-0.031); Immature Granulocyte Percent A 0.4 % (0-0.5); Lymphocytes Absolute Auto 2.17 K/mm3 (0.9-3.2); Lymphocytes Percent Auto 31.5 % (18.3-44.2); Mean Corpuscular HGB Conc 31.6 g/dl (32-36); Mean Corpuscular Volume 95.1 fl (80-100); Mean Platelet Volume 9.6 fl (7.4-10.4); Monocytes Absolute Auto 0.6 K/mm3 (0.1-0.6); Monocytes Percent Auto 8.6 % (2.6-8.5); Neutrophils Absolute Auto 3.8 K/mm3 (1.3-6.7); Neutrophils Percent Auto 55.7 % (45.5-73.1); Platelet Count Result 328 k/mm3 (150-375); Red Blood Count 4.93 M/mm3 (4.6-6.20); Red Cell Distribution Width 13.5 % (11.5-14.5); White Blood Count 6.9 K/mm3 (4.5-10.0)
[2022-09-16 18:29] LABS: Alanine Aminotransferase 52 U/L (6-50); Albumin Level 4.4 g/dL (3.5-5.1); Alkaline Phosphatase 97 U/L (38-126); Anion Gap 5 mmol/L (8-16); Aspartate Amino Transferase 100 U/L (17-59); Bilirubin,Total 0.6 mg/dL (0.2-1.3); Blood Urea Nitrogen 10 mg/dL (9-20); Carbon Dioxide 30 mmol/L (22-30); Chloride 108 mmol/L (98-107); Cholesterol 187 mg/dL (0-200); Estimated Glomerular Filt Rate > 60; Glucose 93 mg/dL (65-110); HDL Direct 47 mg/dL; Potassium 3.5 mmol/L (3.4-5.0); Sodium 143 mmol/L (137-145); Triglycerides 215 mg/dL (<150)
[2022-09-16 18:40] LABS: LDL Cholesterol Direct 97 mg/dL
[2022-09-16 18:58] LABS: Prostate Specific Antigen 0.4 ng/mL (< OR = 4.0)
[2022-09-22 15:49] LABS: Testosterone Free 49.9 pg/mL (35.0-155.0); Testosterone Total 337 ng/dL (250-1100)
== END 2022-09-16 07:15 | disposition home or self-care (01) ==
LOC: ANHBWCLAB 07:16
PROVIDERS: PCP Family Medicine; Visit Provider Nurse Practitioner Family
DX: Z00.00 Encounter for general adult medical examination without abnormal findings (principal); E78.5 Hyperlipidemia, unspecified; N52.9 Male erectile dysfunction, unspecified
CPT/HCPCS: 36415; 80053; 80061; 84153; 84402; 84403; 85025; G0103

== ENCOUNTER 2022-12-21 10:28 | Emergency (ER) | payer OTHER, SELFPAY ==
--- NOTE | ~2022-12-21 | XR_ITS ---
EXAMINATION: XR elbow RT min 3V DATE: 12/21/2022 10:50 INDICATION: Posterior right elbow pain and inability to fully extend the elbow TECHNIQUE: Anteroposterior, two oblique and lateral views of the right elbow were obtained. COMPARISON: None. FINDINGS: Alignment is normal. No fracture. Joint spaces are normal. No erosions. There appears to be displacem ent of the anterior and posterior fat pads suggestive of the presence of a right elbow joint effusion . Soft tissues are otherwise unremarkable. IMPRESSION: 1. Likely right elbow joint effusion. No osseous abnormality. Reviewed, dictated and finalized at location A.
[2022-12-21 10:34] VITALS: BP 149/95; PULSE 83; RESP 20; TEMP 36.7; O2SAT 100
--- NOTE | 2022-12-21 10:46 | ED.UPPEXIN ---
HPI - Extremity Injury (Upper) General Chief Complaint: Extremity Injury, Upper Stated Complaint: Right Elbow Pain History of Present Illness HPI narrative: Patient woke up in the middle the night with right elbow discomfort and swelling. Patient denies any injury. Patient denies any history of gout or arthritis. Patient has not taking anything [id number] for her symptoms. Related Data Home Medications Medication Instructions Recorded Confirmed aspirin 81 mg tablet,delayed 81 mg PO DAILY 02/04/22 12/21/22 release (Adult Aspirin Regimen) oxycodone-acetaminophen 10 mg-325 1 tablet PO TID 05/31/22 12/21/22 mg tablet docusate sodium 100 mg capsule 100 mg PO BID 08/08/22 12/21/22 (Colace) morphine 15 mg tablet,extended 15 mg PO TID 08/08/22 12/21/22 release atorvastatin 80 mg tablet 80 mg PO DAILY 12/21/22 12/21/22 Allergies Allergy/AdvReac Type Severity Reaction Status Date / Time No Known Allergies Allergy Verified 12/21/22 10:45 Review of Systems Review of Systems: CONSTITUTIONAL: Denies fever, chills, or sweats. EYES: Denies visual changes, redness, or discharge. ENT: Denies rhinorrhea, congestion, sore throat, or otalgia. CARDIOVASCULAR: Denies chest pain, palpitations, or edema. RESPIRATORY: Denies cough or dyspnea. GASTROINTESTINAL: Denies abdominal pain, nausea, vomiting, or diarrhea. GENITOURINARY: Denies dysuria or hematuria. SKIN: Denies rash or itching. MUSCULOSKELETAL: Denies back pain, joint pain, or myalgia. NEUROLOGIC: Denies headache, numbness, or weakness. PSYCHIATRIC: Denies anxiety or depression. [facility] Past Medical History Medical History Anxiety Back pain CAD (coronary artery disease) CAD (coronary artery disease), autologous vein bypass graft Chest pain Colitis COVID-19 Variant angina Surgical History Surgical History S/P CABG x 4 Family History Family History Mother Heart problem Hypertension Hyperlipidemia Acute myocardial infarction Diabetes mellitus Sibling Heart problem Hypertension Cerebrovascular accident Grandparent Heart problem Father Pulmonary disease Social History Social History Social History: Patient lives with his Nenita and they have 6 kids which 3 are adopted. The youngest of the kids are 5 years old. They have several pets including 2 dogs, 1 cat, and several fish. Patient elects his Nenita to be his surrogate, and wishes to be a full code at this time. Smoking status: Never smoker Tobacco type: smokeless tobacco Smokeless tobacco user: chewing tobacco Second hand tobacco smoke exposure: Yes (father smoked until Jose Enrique was 17) Additional smoking assessment comments: Quit tobacco of 30 year about 1.5 years ago Alcohol intake: never Substance use: never Lack of Transportation: No Lack of Food: Never True Current Housing: I Have Housing Concerned About Future Housing: No Difficulty Paying Gas/Electric Bills: No Difficulty Paying for Meds: No Currently Unemployed: No Education: High School Diploma/GED Difficulty w/ Childcare or Family Care: No Living arrangements: with family 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 There is no relevant family history pertinent to the presenting complaint Exam Narrative: GENERAL: Well-appearing, well-nourished, and in no acute distress. HEAD:
--- NOTE | 2022-12-21 11:03 | PC.NURSE ---
PT DECLINED ICE FOR COMFORT
== END 2022-12-21 11:15 | disposition home or self-care (01) ==
PROVIDERS: Emergency Provider Nurse Practitioner Family; PCP Family Medicine
DX: M25.521 Pain in right elbow (principal); Z87.891 Personal history of nicotine dependence; I25.10 Atherosclerotic heart disease of native coronary artery without angina pectoris; Z95.1 Presence of aortocoronary bypass graft; Z79.82 Long term (current) use of aspirin
CPT/HCPCS: 73080; 99213; G0463

== ENCOUNTER 2023-04-28 07:06 | Outpatient (CLI) | payer OTHER, SELFPAY ==
[2023-04-28 19:29] LABS: Alanine Aminotransferase 30 U/L (6-50); Albumin Level 4.4 g/dL (3.5-5.1); Alkaline Phosphatase 92 U/L (38-126); Anion Gap 5 mmol/L (8-16); Aspartate Amino Transferase 67 U/L (17-59); Bilirubin,Total 0.5 mg/dL (0.2-1.3); Blood Urea Nitrogen 12 mg/dL (9-20); Carbon Dioxide 31 mmol/L (22-30); Chloride 101 mmol/L (98-107); Cholesterol 227 mg/dL (0-200); Estimated Glomerular Filt Rate > 60; Glucose 94 mg/dL (65-110); HDL Direct 41 mg/dL; Potassium 4.1 mmol/L (3.4-5.0); Sodium 137 mmol/L (137-145); Triglycerides 276 mg/dL (<150)
[2023-04-28 19:41] LABS: LDL Cholesterol Direct 121 mg/dL
== END 2023-04-28 07:07 | disposition home or self-care (01) ==
LOC: ANHBWCLAB 07:07
PROVIDERS: PCP Family Medicine; Visit Provider Internal Medicine Cardiovascular Disease
DX: E78.5 Hyperlipidemia, unspecified (principal)
CPT/HCPCS: 36415; 80053; 80061

== ENCOUNTER 2023-05-27 15:34 | Outpatient (CLI) | payer OTHER, SELFPAY ==
--- NOTE | 2023-05-27 15:37 | ECHO_ITS ---
Patient Info Name: Jose Enrique Horta Age: 52 years : 1970 Gender: Male Ht: 68 in Wt: 220 lbs BSA: 2.22 m2 HR: 65 bpm BP: 120 / 68 mmHg Technical Quality: Fair Exam Date: 05/27/2023 3:53 PM Exam Location: Echo Lab Patient Status: Outpatient Admit Date: 05/27/2023 Staff Ordering Physician: Kodi Licea DO Attending Provider: Kodi Licea DO Referring Physician: Vinayak GABRIEL; Exam Type: CA echo doppler color flow Study Info Indications R60.0 - Localized edema Complete two-dimensional, color flow and Doppler transthoracic echocardiogram is performed. Summary 1. Complete two-dimensional, color flow and Doppler transthoracic echocardiogram is performed. 2. Left ventricular chamber dimension is normal. 3. Left ventricular systolic function is normal, estimated at 60-65%. 4. The left ventricular diastolic function is grade I diastolic dysfunction. 5. E/e' 6 is not elevated. 6. Right ventricular systolic function is reduced based on abnormal TAPSE 1.2 cm. 7. Left atrial chamber dimension is mildly enlarged. 8. The mitral valve has mildly calcified annulus. 9. There is mild mitral valve regurgitation. 10. There is trace tricuspid valve regurgitation. 11. There is trace pulmonic regurgitation. Left Ventricle E/e' 6 is not elevated. Left ventricular chamber dimension is normal. Left ventricular systolic function is normal, estimated at 60-65%. The left ventricular diastolic function is grade I diastolic dysfunction. Right Ventricle Right ventricular systolic function is reduced based on abnormal TAPSE 1.2 cm. Right ventricular chamber dimension is not well visualized. Left Atria Left atrial chamber dimension is mildly enlarged. Right Atria Right atrial chamber dimension is normal. Aortic Valve The aortic valve is trileaflet. There is no aortic valve stenosis. There is no aortic valve regurgitation. Pulmonic Valve There is trace pulmonic regurgitation. Mitral Valve The mitral valve has mildly calcified annulus. There is no mitral valve stenosis. There is mild mitral valve regurgitation. Tricuspid Valve RVSP is not calculated due to an inadequate TR jet. There is trace tricuspid valve regurgitation. Pericardium/Pleural There is no pericardial effusion. Inferior Vena Cava Normal inferior vena cava with >50% collapse upon inspiration consistent with normal right atrial pressure, 5 mmHg. Aorta The aortic root size at the sinus of Valsalva is normal. Left Ventricular Outflow Tract Name Value Normal LVOT 2D LVOT Diameter 2.1 cm LVOT Doppler LVOT Peak Gradient 3 mmHg LVOT Mean Gradient 2 mmHg LVOT VTI 19 cm LVOT VTI/AV VTI Ratio 0.8 LVOT Stroke Volume 68 ml LVOT CO 4.4 l/min LVOT CI 2.0 l/min/m2 Pulmonic Valve Name Value Normal PV Doppler
== END 2023-05-27 15:35 | disposition home or self-care (01) ==
PROVIDERS: PCP Family Medicine; Visit Provider Internal Medicine Cardiovascular Disease
DX: R60.0 Localized edema (principal); R93.1 Abnormal findings on diagnostic imaging of heart and coronary circulation; I34.81 Nonrheumatic mitral (valve) annulus calcification; I34.0 Nonrheumatic mitral (valve) insufficiency; I07.1 Rheumatic tricuspid insufficiency; I37.1 Nonrheumatic pulmonary valve insufficiency
CPT/HCPCS: 93306

== ENCOUNTER 2023-06-11 09:27 | Outpatient (CLI) | payer OTHER, SELFPAY ==
--- NOTE | 2023-06-17 19:25 | WPDHOMESLEEP ---
Sleep Study - Home Unattended Date of Study: 06/11/23 Ordering Provider: Kodi Licea DO Interpreting Provider: Ute Rubio DO Home Sleep Study Type: Watch PAT Height: 1.73 m Weight: 102.058 kg Body Mass Index: 34.2 Neck Circumference (inches): 16.25 [place]: 8 Reason for Sleep Study Presence of diastolic dysfunction Sleep History The patient is a 52-year-old male with anxiety, back pain, coronary artery disease, colitis, variant angina diastolic dysfunction and history of chewing tobacco use that had a sleep study ordered by his platinum and palladium kettle tender for evaluation of sleep apnea. The patient denies awakening from sleep short of breath. He denies awakening at night with heartburn, belching or cough. He frequently snores and is rarely loud enough that others complain. He denies having trouble sleeping when he has a cold. He denies waking up gasping for air throughout the night. He occasionally has breathing problems at night observed by himself or others. He denies sweating excessively at night. He occasionally has heart palpitations or irregular heartbeats during the night. He denies falling asleep during the day and while driving. He denies cataplexy and hypnagogic/ hypnopompic hallucinations. He denies having trouble at school or work due to sleepiness. He rarely feels unable to move while waking up or falling asleep. He denies feeling afraid of going to sleep. He denies having nightmares. He constantly remembers his dreams. He frequently has thoughts racing through his mind. He occasionally feels sad or depressed. He frequently has anxiety. He rarely has muscular tension. He rarely notices parts of his body jerk. He occasionally kicks during the night. He denies having crawling and aching feelings in his legs and denies having leg pain during the night. He denies grinding his teeth during sleep and denies awakening with morning jaw pain. He is frequently bothered by pain during the day and occasionally awakened by pain during the night. He frequently wakes up feeling stiff in the morning. He occasionally wakes up with sore or achy muscles. He frequently wakes up with pain in the neck, spine and other joints. He goes to bed at 10:00 p.m. on weekdays and between 11:30 p.m. to 12:30 a.m. on weekends. It takes him 20 minutes to fall asleep. He wakes up 3-4 times throughout the night to urinate and is able to fall back asleep within 5 minutes. He wakes up at 7:15 a.m. on weekdays and 8:00 a.m. on the weekends. He typically gets 6 to 7 hours of sleep per night. He will stay in bed for 5 minutes after waking up in the morning. He currently lives with his and kids. He denies consuming any caffeinated beverages within 2 hours of bedtime. He denies engaging in physical exercise before bedtime. He will watch television before falling asleep. He will occasionally take naps in the afternoon or the evening and they are refreshing. He consumes 3-4 caffeinated beverages per day. He denies tobacco, alcohol and recreational drug use. [facility] Past Medical History Medical History Anxiety Back pain CAD (coronary artery disease) CAD (coronary artery disease), autologous vein bypass graft Chest pain Colitis COVID-19 Variant angina Surgical History Surgical History S/P CABG x 4 Family History Family History Mother Heart problem Hypertension Hyperlipidemia Acute myocardial infarction Diabetes mellitus Sibling Heart problem Hypertension Cerebrovascular accident Grandparent Heart problem Father Pulmonary disease Social History Social History Social History: Patient lives with his Nenita and they have 6 kids which 3 are adopted. The youngest of the kids are 5 years old. They
[2023-06-17 19:27] VITALS: BMI 34.2
== END 2023-06-12 12:44 | disposition home or self-care (01) ==
LOC: ANHCSM 09:28
PROVIDERS: PCP Family Medicine; Visit Provider Internal Medicine Cardiovascular Disease
DX: G47.10 Hypersomnia, unspecified (principal); R06.83 Snoring
CPT/HCPCS: 95800

== ENCOUNTER 2023-08-28 07:03 | Outpatient (CLI) | payer OTHER, SELFPAY ==
[2023-08-28 19:10] LABS: Alanine Aminotransferase 32 U/L (6-50); Albumin Level 4.4 g/dL (3.5-5.1); Alkaline Phosphatase 98 U/L (38-126); Anion Gap 7 mmol/L (4-12); Aspartate Amino Transferase 71 U/L (17-59); Bilirubin,Total 0.4 mg/dL (0.2-1.3); Blood Urea Nitrogen 8 mg/dL (9-20); Calcium 9.3 mg/dL (8.4-10.2); Carbon Dioxide 27 mmol/L (22-30); Chloride 105 mmol/L (98-107); Cholesterol 187 mg/dL (0-200); Estimated Glomerular Filt Rate > 60; Glucose 100 mg/dL (65-110); HDL Direct 43 mg/dL; Potassium 3.9 mmol/L (3.4-5.0); Sodium 139 mmol/L (137-145); Triglycerides 226 mg/dL (<150)
[2023-08-28 19:20] LABS: LDL Cholesterol Direct 106 mg/dL
== END 2023-08-28 07:04 | disposition home or self-care (01) ==
LOC: ANHBWCLAB 07:07
PROVIDERS: Internal Medicine Cardiovascular Disease; PCP Family Medicine; Visit Provider Nurse Practitioner Family
DX: E78.5 Hyperlipidemia, unspecified (principal)
CPT/HCPCS: 36415; 80053; 80061; 84443

== ENCOUNTER 2023-08-28 08:52 | Outpatient (CLI) | payer OTHER, SELFPAY ==
--- NOTE | 2023-09-07 20:14 | WPDSLEEPSTUD ---
Sleep Study Date of Study: 08/28/23 Ordering Provider: All Guerrero APRN Interpreting Physician: Ute Rubio DO Sleep Study Type: Polysomnogram Height: 1.73 m Weight: 106.594 kg Body Mass Index: 35.7 Neck Circumference (inches): 16.25 [place]: 8 Reason for Sleep Study The patient had a WatchPAT home sleep test on 06/11/2023 that showed an overall AHI of 3.9 with desaturation down to 90%. Sleep History The patient is a 52-year-old male with anxiety, back pain, coronary artery disease, colitis, variant angina diastolic dysfunction and history of chewing tobacco use that had a sleep study ordered by his casino floor runner for evaluation of sleep apnea. The patient denies awakening from sleep short of breath. He denies awakening at night with heartburn, belching or cough. He frequently snores and is rarely loud enough that others complain. He denies having trouble sleeping when he has a cold. He denies waking up gasping for air throughout the night. He occasionally has breathing problems at night observed by himself or others. He denies sweating excessively at night. He occasionally has heart palpitations or irregular heartbeats during the night. He denies falling asleep during the day and while driving. He denies cataplexy and hypnagogic/ hypnopompic hallucinations. He denies having trouble at school or work due to sleepiness. He rarely feels unable to move while waking up or falling asleep. He denies feeling afraid of going to sleep. He denies having nightmares. He constantly remembers his dreams. He frequently has thoughts racing through his mind. He occasionally feels sad or depressed. He frequently has anxiety. He rarely has muscular tension. He rarely notices parts of his body jerk. He occasionally kicks during the night. He denies having crawling and aching feelings in his legs and denies having leg pain during the night. He denies grinding his teeth during sleep and denies awakening with morning jaw pain. He is frequently bothered by pain during the day and occasionally awakened by pain during the night. He frequently wakes up feeling stiff in the morning. He occasionally wakes up with sore or achy muscles. He frequently wakes up with pain in the neck, spine and other joints. He goes to bed at 10:00 p.m. on weekdays and between 11:30 p.m. to 12:30 a.m. on weekends. It takes him 20 minutes to fall asleep. He wakes up 3-4 times throughout the night to urinate and is able to fall back asleep within 5 minutes. He wakes up at 7:15 a.m. on weekdays and 8:00 a.m. on the weekends. He typically gets 6 to 7 hours of sleep per night. He will stay in bed for 5 minutes after waking up in the morning. He currently lives with his and kids. He denies consuming any caffeinated beverages within 2 hours of bedtime. He denies engaging in physical exercise before bedtime. He will watch television before falling asleep. He will occasionally take naps in the afternoon or the evening and they are refreshing. He consumes 3-4 caffeinated beverages per day. He denies tobacco, alcohol and recreational drug use. [facility] Past Medical History Medical History Anxiety Back pain CAD (coronary artery disease) CAD (coronary artery disease), autologous vein bypass graft Chest pain Colitis COVID-19 Variant angina Surgical History Surgical History S/P CABG x 4 Family History Family History Mother Heart problem Hypertension Hyperlipidemia Acute myocardial infarction Diabetes mellitus Sibling Heart problem Hypertension Cerebrovascular accident Grandparent Heart problem Father Pulmonary disease Social History Social History Social History: Patient lives with his Nenita and they have 6 k
[2023-09-07 20:16] VITALS: BMI 35.7
== END 2023-08-29 06:40 | disposition home or self-care (01) ==
LOC: ANHCSM 08:53
PROVIDERS: PCP Family Medicine; Visit Provider Nurse Practitioner Family
DX: G47.10 Hypersomnia, unspecified (principal); G47.33 Obstructive sleep apnea (adult) (pediatric)
CPT/HCPCS: 95810

== ENCOUNTER 2023-08-29 11:52 | Outpatient (CLI) | payer OTHER, SELFPAY ==
--- NOTE | 2023-08-29 12:14 | ECG_ITS ---
SEE SCANNED COPY FOR CONFIRMED REPORT MTDD
== END 2023-08-29 11:53 | disposition home or self-care (01) ==
LOC: ANHCARD 11:53
PROVIDERS: PCP Family Medicine; Visit Provider Nurse Practitioner Family
DX: I49.9 Cardiac arrhythmia, unspecified (principal)
CPT/HCPCS: 93005

== ENCOUNTER 2024-05-06 08:50 | Outpatient (CLI) | payer OTHER, SELFPAY ==
[2024-05-06 19:47] LABS: Hematocrit 51.9 % (42.0-52.0); Hemoglobin 16.8 g/dL (14.0-18.0); Mean Corpuscular HGB Conc 32.4 g/dl (32-36); Mean Corpuscular Hemoglobin 30.4 pg (26-34); Mean Platelet Volume 9.5 fl (7.4-10.4); Platelet Count Result 299 k/mm3 (150-375); Red Blood Count 5.52 M/mm3 (4.6-6.20); Red Cell Distribution Width 12.2 % (11.5-14.5); White Blood Count 5.8 K/mm3 (4.5-10.0)
[2024-05-06 20:03] LABS: Alanine Aminotransferase 37 U/L (6-50); Albumin Level 4.6 g/dL (3.5-5.1); Alkaline Phosphatase 89 U/L (38-126); Anion Gap 6 mmol/L (4-12); Aspartate Amino Transferase 57 U/L (17-59); Blood Urea Nitrogen 8 mg/dL (9-20); Calcium 9.4 mg/dL (8.4-10.2); Carbon Dioxide 28 mmol/L (22-30); Chloride 106 mmol/L (98-107); Cholesterol 246 mg/dL (0-200); Estimated Glomerular Filt Rate > 60; Glucose 98 mg/dL (65-110); HDL Direct 44 mg/dL; Potassium 3.8 mmol/L (3.4-5.0); Sodium 140 mmol/L (137-145); Triglycerides 208 mg/dL (<150)
[2024-05-06 20:15] LABS: LDL Cholesterol Direct 141 mg/dL
[2024-05-06 20:23] LABS: Free T4 Free Thyroxine 1.03 ng/dL (0.78-2.19)
[2024-05-06 20:33] LABS: Prostate Specific Antigen 0.7 ng/mL (< OR = 4.0); Thyroid Stimulating Hormone 0.955 uIU/mL (0.465-4.680)
[2024-05-12 19:42] LABS: Testosterone Free 65 pg/mL (35.0-155.0); Testosterone Total 386 ng/dL (250-1100)
== END 2024-05-06 08:51 | disposition home or self-care (01) ==
LOC: ANHBWCLAB 08:52
PROVIDERS: PCP Nurse Practitioner Adult Health; Visit Provider Nurse Practitioner Adult Health
DX: E78.5 Hyperlipidemia, unspecified (principal); N52.9 Male erectile dysfunction, unspecified; Z12.5 Encounter for screening for malignant neoplasm of prostate; I25.810 Atherosclerosis of coronary artery bypass graft(s) without angina pectoris
CPT/HCPCS: 36415; 80053; 80061; 84153; 84402; 84403; 84439; 84443; 85027; G0103

== ENCOUNTER 2024-10-28 04:53 | Day surgery (SDC) | payer OTHER, SELFPAY ==
[2024-10-26 10:06] VITALS: BMI 24.4
--- OUTSIDE RECORDS SUMMARY | 2024-10-28 04:55 | XMS_ITS | Clinical Summary ---
Author Organization [facility] Care Team Providers Care Personal Injury Litigation Paralegal Name Role Phone Unavailable Primary Care Provider Unavailabl e Social History Tobacco Use Types Packs/Day Years Used Date Smoking Tobacco: Never Assessed Sex and Gender Information Value Date Recorded Sex Assigned at Not on file Legal Sex Male 12:28 AM CDT Gender Identity Not on file Sexual Orientation Not on file Plan of Treatment Health Maintenance Due Date Last Done Comments Hepatitis C Virus (HCV) Screening 1970 TdaP Immunization 1970 Hepatitis B Immunization (1 of 3 - 19+ 3-dose series) 12/23/1990 Colonoscopy 12/23/2016 Colorectal Cancer Screening 12/23/2016 Cologuard 12/23/2021 Immunochemical Fecal Occult Blood 12/23/2021 Pneumococcal Immunization (5 0+ years) (1 of 1 - PCV) 12/23/2021 Zoster Immunization (1 of 2) 12/23/2021 Influenza Immunization (#1) 2024 SARS-COV-2 Immunization ( - season) 2024 Respiratory Syncytial Virus (RSV) Immunization (Adult) (1 - 1-dose 75+ series) 12/23/2046 Meningococcal Immunization (ACWY) Aged Out No longer eligible based on patient's age to complete this topic Pneumococcal Immunization Combined Aged Out No longer eligible based on patient's age to complete this topic Rotavirus Immunization Aged Out No lo nger eligible based on patient's age to complete this topic
--- OUTSIDE RECORDS SUMMARY | 2024-10-28 04:55 | XMS_ITS | Referral Summary ---
Author Organization [facility] [address] [facility] Address [address] [place] [address] Care Team Providers Care Dry Cleaning Counter Clerk Name Role Phone Deny Haley MD Primary Care Provider [phone] Kolby Jimenez MD Unavailable [phone] Kodi Licea DO Unavailable [phone] Allergies No known active allergies Medications aspirin 81 mg enteric coated tablet Take 81 mg by mouth nightly Active atorvastatin (LIPITOR) 80 mg tablet Take 80 mg by mouth nightly 2 Active morphine ER (MS CONTIN) 15 mg 12 hr tablet Take 15 mg by mouth 3 (three) times a day 2 Active docusate sodium (COLACE) 100 mg capsule Take 300 mg by mouth 2 (two) times a day as needed for constipation Active clonazePAM (KlonoPIN) 0.5 mg tablet Take 0.5 mg by mouth 2 (two) times a day Active acetaminophen 500 mg capsule Take 2 capsules (1,000 mg total) by mouth every 6 (six) hours 30 tablet 2 Active gabapentin (NEURONTIN) 300 mg capsuleIndicat ions:Postopera tive Acute Pain Take 1 capsule (300 mg total) by mouth 3 (three) times a day for 7 days 21 capsule 2 Active polyethylene glycol (MIRALAX) 17 gram packetIndicati ons:constipati on Take 1 packet (17 g total) by mouth daily 2 Active oxyCODONE (ROXICODONE) 15 mg immediate release tabletIndicati ons:Pain Take 1 tablet (15 mg total) by mouth every 4 (four) hours as needed for pain For postoperative (s/p CABG, sternotomy) pain 28 tablet 2 Active clopidogreL (PLAVIX) 75 mg tabletIndicati ons:myocardial infarction prevention Take 1 tablet (75 mg total) by mouth daily 30 tablet 3 3 Active metoprolol tartrate (LOPRESSOR) 25 mg immediate release tablet Take 1 tablet (25 mg total) by mouth 2 (two) times a day 60 tablet 3 Active Active Problems Problem Noted Date Diagnosed Date Coronary artery disease (CAD) excluded 2 Coronary artery disease of n ative heart with stable angina pectoris 02/19/2022 Overview (02/19/2022): Added automatically from request for surgery [id number] Hyperlipidemia 03/17/2014 Overview (08/21/2016): Hyperlipidemia Low back pain 03/17/2014 Overview (08/21/2016): Lumbago Ulcerative colitis 06/17/1999 Overview (08/21/2016): Ulcerative colitis Immunizations Immunization Administration Dates Next Due Influenza, Quadrivalent, Spl it, Preservative Free, Intramuscular 03/30/2022 Influenza, Trivalent, Preservative Free, Intramu scular 04/02/2017 Social History Tobacco Use Types Packs/Day Years Used Date Smoking Tobacco: Never Smokeless Tobacco: Former Chew Quit: 06/2021 Tobacco Cessation:Counseling Given: Not Answered Alcohol Use Standard Drinks/Week Comments Yes 0 (1 standard drink = 0.6 oz pur e alcohol) AUDIT-C Answer Date Recorded Q1: How often do you have a drink containing alc ohol? 2-4 times a month 03/25/2022 Q2: How many drinks containi ng alcohol do you have on a typical day when you are drinking? 1 or 2 03/25/2022 Q3: How often do you have si x or more drinks on one occasion? 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 Gender Identity Not on file Sexual Orientation Not on file Last Filed Vital Signs Vital Sign Reading Time Taken Comments Blood Pressure 118/72 07/30/2022 12:49 PM CDT Pulse 80 07/30/2022 12:49 PM CDT Temperature 36.2 C (97.1 F) 05/03/2022 10:43 AM FORM WORKER Respiratory Rate 16 07/30/2022 12:49 PM CDT Oxygen Saturation 98% 07/30/2022 12:49 PM CDT Inhaled Oxygen Concentration - - Weight 98.4 kg (217 lb) 07/30/2022 12:49 PM CDT Height 175.3 cm (5' 9) 07/30/2022 12:49 PM CDT Body Mass Index 32.05 07/30/2022 12:49 PM CDT Plan of Treatment Not on file Insurance [facility] [employer] O/POS [employer] O/POS [employer] OPEN ACCESS COMMERCIAL GENERIC Advance Directives For more information, please contact: [phone] * Full Code (Latest Code Status on File) Date Activated Date Inactivated Comments 03/25/2022 3:43 PM 03/30/2022 5:16 PM Care Teams Dry Cleaning Counter Clerk Relationship Specialty Start Date End Date Deny Haley MD PCP - General Family Practice 02/19/22 Kolby Jimenez MD Surgeon Cardiothoracic Surgery 03/30/22 Kodi Licea DO [address] [place] [address] Referring Physician Internal Medicine 03/30/22
--- OUTSIDE RECORDS SUMMARY | 2024-10-28 04:55 | XMS_ITS | Clinical Summary ---
Author Organization [facility] [address] [facility] Address [address] [place] [address] [place] [address] Care Team Providers Care Brake Operator Name Role Phone Deny Haley MD Primary Care Provider [phone] Kolby Jimenez MD Unavailable [phone] Kodi Licea DO Unavailable [phone] Allergies No known active allergies Medications aspirin [...] (02/19/2022): Added automatically from request for surgery [id number] Hyperlipidemia 03/17/2014 Overview (08/21/2016): Hyperlipidemia Low back pain 03/17/2014 Overview (08/21/2016): Lumbago Ulcerative colitis 06/17/1999 Overview (08/21/2016): Ulcerative colitis Immunizations Immunization Administration Dates Next Due Influenza, Quadrivalent, Spl it, Preservative Free, Intramuscular 03/30/2022 Influenza, Trivalent, Preservative Free, Intramu scular 04/02/2017 Surgical History Surgery Date Site/Laterality Comments MYRINGOTOMY W/ TUBES TONSILLECTOMY COLONOSCOPY Medical History Medical History Date Comments Coronary artery disease Hyperlipidemia Low back pain UC (ulcerative colitis) (HCC) as ymptomatic Anxiety DDD (degenerative disc disease), lumbar Pain management Dr Troncoso @ [facility] 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 lumber DDD pain Hypertension Family History Medical History Relation Name Comments Emphysema Brother Emphysema; COPD Father COPD; Emphysema Father Emphysema; Diabetes Mother Diabetes mellit us; Heart disease Mother Cardiovascular disease; Hypertension Mother Hypertension; Hypertension Sister Hypertension; Relation Name Status Comments Brother Father Mother Sister Social History Tobacco Use Types Packs/Day Years [...] on file 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 Gender Identity Not on file Sexual Orientation Not on file Obstetrics History Last Filed Vital Signs Vital Sign Reading Time Taken Comments Blood Pressure 118/72 07/30/2022 12:49 PM CDT Pulse 80 07/30/2022 12:49 PM CDT Temperature 36.2 C (97.1 F) 05/03/2022 10:43 AM LABOR DELIVERY SPECIALIST Respiratory Rate 16 07/30/2022 12:49 PM CDT Oxygen Saturation 98% 07/30/2022 12:49 PM CDT Inhaled Oxygen Concentration - - Weight 98.4 kg (217 lb) 07/30/2022 12:49 PM CDT Height 175.3 cm (5' 9) 07/30/2022 12:49 PM CDT Body Mass Index 32.05 07/30/2022 12:49 PM CDT Plan of Treatment Health Maintenance Due Date Last Done Comments Colon Cancer Screening-Colonoscopy 1971 Depression Screening 1971 Hepatitis C Screening 1971 Prostate Cancer Screening-PSA 1971 DTaP/Tdap/Td Vaccine (1 - Tdap) 12/23/1982 Hepatitis B Screening 12/23/1989 Pneumococcal vaccine <65 (1 of 2 - PCV) 12/23/1990 Regular Well Visit/Exam 18-64 08/21/2018 08/21/2017 Zoster Vaccine (1 of 2) 12/23/2021 Covid-19 Vaccine (2 - season) 01/18/202410/2020 Influenza Vaccine (Season Ended) 2025 03/30/20 22, 04/02/2017 Insurance [facility] COVENTRY O/POS [facility] GENER[facility] Advance Directives For more information, please contact: [phone] * Full Code (Latest Code Status on File) Date Activated Date Inactivated Comments 03/25/2022 3:43 PM 03/30/2022 5:16 PM Care Teams Brake Operator Relationship Specialty Start Date End Date Deny Haley MD PCP - General Family Practice 02/19/22 Kolby Jimenez MD Surgeon Cardiothoracic Surgery 03/30/22 Kodi Licea DO [address] [place] [address] Referring Physician Internal Medicine 03/30/22
[2024-10-28 13:09] VITALS: BP 102/75; PULSE 68; RESP 16; TEMP 35.9; O2SAT 100
[2024-10-28] MEDS: LACTATED RINGERS 1,000 ML 150 ML IV CONT (13:18)
--- NOTE | 2024-10-28 13:58 | P.PNAN_ITS ---
Anes - Initial Pre Proc Eval Procedure: Operation Date: 10/28/24 13:30 Proposed Procedures p Screening Colonoscopy - Finesse King MD Date/Time: 10/28/24 13:58 Surgeon: Finesse King MD Pre Op Diagnosis: screening colon Patient Data Age: 53 Gender: M Height: 1.75 m Weight: 76.3 kg Last Vital Signs Temp 96.7 F L 10/28/24 13:09 Pulse 68 10/28/24 13:09 Resp 16 10/28/24 13:09 BP 102/75 10/28/24 13:09 Pulse Ox 100 10/28/24 13:09 O2 Del Method Room Air 10/28/24 13:09 Allergies Allergy/AdvReac Type Severity Reaction Status Date / Time No Known Allergies Allergy Verified 10/28/24 13:04 Home Medications ?Medication ?Instructions ?Recorded ?Confirmed ?Type aspirin 81 mg tablet,delayed 81 mg PO DAILY 02/04/22 10/28/24 History release (Adult Aspirin Regimen) oxycodone-acetaminophen 10 mg-325 1 tablet PO TID PRN pain 05/31/22 10/28/24 History mg tablet ibuprofen 800 mg tablet 800 mg PO Q12H PRN pain 11/04/23 10/28/24 History docusate sodium 100 mg capsule 100 mg PO DAILY 05/06/24 10/28/24 History (Colace) morphine 15 mg tablet,extended 15 mg PO BID PRN pain 05/06/24 10/28/24 History release nebivolol 2.5 mg tablet (Bystolic) 2.5 mg PO DAILY #30 tabs 05/06/24 10/28/24 Rx tadalafil 20 mg tablet (Cialis) 20 mg PO DAILY PRN sexual activity 05/06/24 10/28/24 Rx #30 tabs omega 4-ufr-ifa-fish oil 1,000 mg 1 cap PO DAILY 05/10/24 10/28/24 History (120 mg-180 mg) capsule (Fish Oil) atorvastatin 40 mg tablet See Rx Instructions .Route 07/28/24 10/28/24 Rx .COMPLEX #90 tabs Patient hx anesthesia problems: none Family hx anesthesia problems: none Results Review: All pre-operative results and documents have been reviewed as part of the pre-operative evaluation. [facility] Past Medical History Medical History CAD (coronary artery disease), autologous vein bypass graft Anxiety CAD (coronary artery disease) Chest pain COVID-19 Variant angina Back pain Colitis Surgical History Surgical History S/P CABG x 4 Family History Family History Mother Heart problem Hypertension Hyperlipidemia Acute myocardial infarction Diabetes mellitus Sibling Heart problem Hypertension Cerebrovascular accident Grandparent Heart problem Father Pulmonary disease Social History Social History Social History: Patient lives with his Nenita and they have 6 kids which 3 are adopted. The youngest of the kids are 5 years old. They have several pets including 2 dogs, 1 cat, and several fish. Patient elects his Nenita to be his surrogate, and wishes to be a full code at this time. Smoking status: Light tobacco smoker Tobacco type: smokeless tobacco Smokeless tobacco user: chewing tobacco Second hand tobacco smoke exposure: Yes (father smoked until Jose Enrique was 16) Additional smoking assessment comments: Quit tobacco of 30 year about 1.5 years ago Alcohol intake: never Substance use: never Lack of Transportation: No Lack of Food: Never True Current Housing: I Have Housing Concerned About Future Housing: No Difficulty Paying Gas/Electric Bills: No Difficulty Paying for Meds: No Currently Unemployed: No Education: High School Diploma/GED Difficulty w/ Childcare or Family Care: No Living arrangements: with family 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 Gender identity (if verbalized by the patient): Male Sexual Orientation (if Verbalized by the Patient): Straight or Heterosexual Spiritual care concerns: No (zoroastrian) Agree to blood products: Yes Anes - Eval Final PreProcedure Day of Procedure 10/28/24 13:58 Patient weight: normal Heart: regular rate and rhythm Lungs: clear to auscultation Airway: Mallampati scale class II Neurological: alert and oriented Last oral intake: >/= 8 hours ASA classification: III Emergent: no Anesthetic plan: proceed Anesthesia type and monitoring: general GIVS and standard monitoring Results Review: All pre-operative results and documents have been reviewed as part of the pre- operative evaluation. Informed Consent: The patient's anesthetic plan and its attendant risks and benefits were discussed with the patient/family/POA. Questions were solicited and answers provided to the satisfaction of the patient/family/POA.
--- NOTE | 2024-10-28 14:45 | P.HP_ITS ---
H&P: HPI History of Present Illness Date/Time: 10/28/24 14:45 Chief Complaint: History of ulcerative colitis Narrative: the patient has been diagnosed with ulcerative colitis in year 1999. He took mesalamine for a while and then he has some side effects and discontinued the medication. Since then he states he has been asymptomatic and currently he is not taking any medication. He is here for colonoscopy Review of Systems Review of Systems: All systems reviewed & are unremarkable except as noted in HPI and below PMFSH Past Medical History Medical History CAD (coronary artery disease), autologous vein bypass graft Anxiety CAD (coronary artery disease) Chest pain COVID-19 Variant angina Back pain Colitis Surgical History Surgical History S/P CABG x 4 Family History Family History Mother Heart problem Hypertension Hyperlipidemia Acute myocardial infarction Diabetes mellitus Sibling Heart problem Hypertension Cerebrovascular accident Grandparent Heart problem Father Pulmonary disease Social History Social History Social History: Patient lives with his Nenita and they have 6 kids which 3 are adopted. The youngest of the kids are 5 years old. They have several pets including 2 dogs, 1 cat, and several fish. Patient elects his Nenita to be his surrogate, and wishes to be a full code at this time. Smoking status: Light tobacco smoker Tobacco type: smokeless tobacco Smokeless tobacco user: chewing tobacco Second hand tobacco smoke exposure: Yes (father smoked until Jose Enrique was 16) Additional smoking assessment comments: Quit tobacco of 30 year about 1.5 years ago Alcohol intake: never Substance use: never Lack of Transportation: No Lack of Food: Never True Current Housing: I Have Housing Concerned About Future Housing: No Difficulty Paying Gas/Electric Bills: No Difficulty Paying for Meds: No Currently Unemployed: No Education: High School Diploma/GED Difficulty w/ Childcare or Family Care: No Living arrangements: with family 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 Gender identity (if verbalized by the patient): Male Sexual Orientation (if Verbalized by the Patient): Straight or Heterosexual Spiritual care concerns: No (christianity) Agree to blood products: Yes Meds Home Medications and Allergies Home Medications ?Medication ?Instructions ?Recorded ?Confirmed ?Type aspirin 81 mg tablet,delayed 81 mg PO DAILY 02/04/22 10/28/24 History release (Adult Aspirin Regimen) oxycodone-acetaminophen 10 mg-325 1 tablet PO TID PRN pain 05/31/22 10/28/24 History mg tablet ibuprofen 800 mg tablet 800 mg PO Q12H PRN pain 11/04/23 10/28/24 History docusate sodium 100 mg capsule 100 mg PO DAILY 05/06/24 10/28/24 History (Colace) morphine 15 mg tablet,extended 15 mg PO BID PRN pain 05/06/24 10/28/24 History release nebivolol 2.5 mg tablet (Bystolic) 2.5 mg PO DAILY #30 tabs 05/06/24 10/28/24 Rx tadalafil 20 mg tablet (Cialis) 20 mg PO DAILY PRN sexual activity 05/06/24 10/28/24 Rx #30 tabs omega 2-qnj-hye-fish oil 1,000 mg 1 cap PO DAILY 05/10/24 10/28/24 History (120 mg-180 mg) capsule (Fish Oil) atorvastatin 40 mg tablet See Rx Instructions .Route 07/28/24 10/28/24 Rx .COMPLEX #90 tabs Allergies Allergy/AdvReac Type Severity Reaction Status Date / Time No Known Allergies Allergy Verified 10/28/24 13:04 Vital Signs Vital Signs - 24 hr 10/28/24 13:09 Temperature 96.7 F L Pulse Rate 68 Respiratory Rate 16 Blood Pressure 102/75 Pulse Oximetry 100 Oxygen Delivery Room Air Exam Const: General: cooperative and healthy appearing Resp: Effort & Inspection: normal respiratory effort and able to speak in complete sentences Auscultation: clear to auscultation bilaterally Cardio: Rate: regular rate Rhythm: regular rhythm GI: Inspection: normal to inspection GI Palp: No No hepatosplenomegaly present Auscultation: normal bowel sounds Rectal Exam: deferred Skin: General skin exam: normal color Psych: Appearance: grossly normal Mental Status: mental status grossly normal Assessment and Plan Assessment and plan (1) Screening for colon cancer: Code(s): Z12.11 - Encounter for screening for malignant neoplasm of colon Status: Acute Assessment and Plan: The patient is deemed a good candidate for the procedure. Consent signed. Will proceed.
--- NOTE | 2024-10-28 15:05 | S_PTH ---
PATIENT: Jose Enrique Horta LOC: [facility] U#:[id number] AGE/SX: 53/M ROOM: RE10/28/[address]: Finesse King MD : 1970 BED: DIS: 10/28/2024 SPEC #: [id number] RECD: 10/29/24 08:30 STATUS: GIOVANNY REQ #: [id number] ROBERT: 10/28/24 15:[address]: Finesse King DEPT: [facility] Surgical RECD BY: Ashley Lovelace ENTERED: 10/29/24 08:30 SP TYPE: Surgical OTHR DR: Nadeen Gibbs APRN Tissues: A - Colon Polypectomy B - Colon Polypectomy Procedures: Hematoxylin and Eosin Stain Gross and Microscopic Level 4
[2024-10-28 15:08] VITALS: BP 95/62; PULSE 66; RESP 18; O2SAT 100
[2024-10-28 15:18] VITALS: BP 116/93; PULSE 68; RESP 18; O2SAT 100
[2024-10-28 15:28] VITALS: BP 100/55; PULSE 65; RESP 18; O2SAT 100
== END 2024-10-28 15:30 | disposition home or self-care (01) ==
PROVIDERS: PCP Nurse Practitioner Adult Health; Referring Provider Nurse Practitioner Adult Health; Visit Provider Internal Medicine Gastroenterology
PROC: 0DJD8ZZ Inspection of Lower Intestinal Tract, Via Natural or Artificial Opening Endoscopic (ICD-10-PCS; CPT 45378; principal; 2024-10-28 13:30)
DX: Z12.11 Encounter for screening for malignant neoplasm of colon (principal); D12.2 Benign neoplasm of ascending colon; K63.5 Polyp of colon; K64.8 Other hemorrhoids; I25.10 Atherosclerotic heart disease of native coronary artery without angina pectoris; F41.9 Anxiety disorder, unspecified; Z79.82 Long term (current) use of aspirin; Z79.891 Long term (current) use of opiate analgesic; Z79.4 Long term (current) use of insulin; Z95.1 Presence of aortocoronary bypass graft; Z87.891 Personal history of nicotine dependence; Z87.19 Personal history of other diseases of the digestive system; Z82.49 Family history of ischemic heart disease and other diseases of the circulatory system
CPT/HCPCS: 45385; 88305; J2003; J2371; J2704; J7120

== ENCOUNTER 2024-11-25 08:20 | Outpatient (CLI) | payer OTHER, SELFPAY ==
--- NOTE | ~2024-11-25 | XR_ITS ---
EXAM/ PROCEDURE: XR hand RT min 3V - 11/25/2024 8:25 CDT HISTORY: 53 years old Male with M79.641 - Pain in right hand COMPARISON: None available TECHNIQUE: Three view(s) FINDINGS/ IMPRESSION: There are no fractures or dislocations.Joint space narrowing, subchondral sclerosis, subchondral cyst formation and osteophyte formation, compatible with mild osteoarthritis. Reviewed, dictated and finalized at location A.
--- OUTSIDE RECORDS SUMMARY | 2024-11-25 08:23 | XMS_ITS | Clinical Summary ---
Author Organization [facility] [address] [facility] Address [address] [place] [address] [place] [address] Care Team Providers Care Cable Mechanic Name Role Phone Deny Haley MD Primary Care Provider [phone] Kolby Jimenez MD Unavailable [phone] Kodi Licea DO Unavailable [phone] Allergies No known active allergies Medications aspirin [...] (02/19/2022): Added automatically from request for surgery [id number] Hyperlipidemia 03/17/2014 Overview (08/21/2016): Hyperlipidemia Low back [...] disease), lumbar Pain management Dr Troncoso @ 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 * Full Code (Latest Code Status on File) Date Activated Date Inactivated Comments 03/25/2022 3:43 PM 03/30/2022 5:16 PM Care Teams Cable Mechanic Relationship Specialty Start Date End Date Deny Haley MD PCP - General Family Practice 02/19/22 Kolby Jimenez MD Surgeon Cardiothoracic Surgery 03/30/22 Kodi Licea DO [address] [place] [address] Referring Physician Internal Medicine 03/30/22
--- OUTSIDE RECORDS SUMMARY | 2024-11-25 08:23 | XMS_ITS | Clinical Summary ---
Author Organization [facility] Care Team Providers Care Marine Firer Name Role Phone Unavailable Primary Care Provider [...]
--- OUTSIDE RECORDS SUMMARY | 2024-11-25 08:23 | XMS_ITS | Referral Summary ---
Author Organization [facility] 155 [facility] Address [address] [place] [address] Care Team Providers Care Community Health Director Name Role Phone Deny Haley MD Primary Care Provider [phone] Kolby Jimenez MD Unavailable [phone] Kodi Licea DO Unavailable [phone] Allergies No known active allergies Medications aspirin [...] (02/19/2022): Added automatically from request for surgery [id number] Hyperlipidemia 03/17/2014 Overview (08/21/2016): Hyperlipidemia Low back [...] on file 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 Gender Identity Not on file Sexual Orientation Not on file Last Filed Vital Signs Vital Sign Reading Time Taken Comments Blood Pressure 118/72 07/30/2022 12:49 PM CDT Pulse 80 07/30/2022 12:49 PM CDT Temperature 36.2 C (97.1 F) 05/03/2022 10:43 AM FREEZER MACHINE OPERATOR Respiratory Rate 16 07/30/2022 12:49 PM CDT Oxygen Saturation 98% 07/30/2022 12:49 PM CDT Inhaled Oxygen Concentration - - Weight 98.4 kg (217 lb) 07/30/2022 12:49 PM CDT Height 175.3 cm (5' 9) 07/30/2022 12:49 PM CDT Body Mass Index 32.05 07/30/2022 12:49 PM CDT Plan of Treatment Not on file Insurance [facility] [email or web address] O/POS [employer] O/POS [employer] OPEN ACCESS COMMERCIAL GENERIC Advance Directives For more information, please contact: [phone] * Full Code (Latest Code Status on File) Date Activated Date Inactivated Comments 03/25/2022 3:43 PM 03/30/2022 5:16 PM Care Teams Community Health Director Relationship Specialty Start Date End Date Deny Haley MD PCP - General Family Practice 02/19/22 Kolby Jimenez MD Surgeon Cardiothoracic Surgery 03/30/22 Kodi Licea DO [address] [place] [address] Referring Physician Internal Medicine 03/30/22
[2024-11-25 18:50] LABS: Hematocrit 50.3 % (42.0-52.0); Hemoglobin 16.0 g/dL (14.0-18.0); Mean Corpuscular HGB Conc 31.8 g/dl (32-36); Mean Corpuscular Hemoglobin 30.7 pg (26-34); Mean Corpuscular Volume 96.5 fl (80-100); Platelet Count Result 288 k/mm3 (150-375); Red Blood Count 5.21 M/mm3 (4.6-6.20); White Blood Count 5.7 K/mm3 (4.5-10.0)
[2024-11-25 19:03] LABS: Alanine Aminotransferase 36 U/L (6-50); Albumin Level 4.7 g/dL (3.5-5.1); Alkaline Phosphatase 64 U/L (38-126); Anion Gap 8 mmol/L (4-12); Aspartate Amino Transferase 83 U/L (17-59); Bilirubin,Total 0.5 mg/dL (0.2-1.3); Blood Urea Nitrogen 10 mg/dL (9-20); Calcium 9.8 mg/dL (8.4-10.2); Carbon Dioxide 25 mmol/L (22-30); Chloride 105 mmol/L (98-107); Cholesterol 192 mg/dL (0-200); Estimated Glomerular Filt Rate > 60; Glucose 101 mg/dL (65-110); HDL Direct 59 mg/dL; Potassium 4.6 mmol/L (3.4-5.0); Sodium 138 mmol/L (137-145); Total Protein 8.1 g/dL (6.3-8.2); Triglycerides 123 mg/dL (<150)
[2024-11-25 21:49] LABS: Prostate Specific Antigen 0.3 ng/mL (< OR = 4.0)
== END 2024-11-25 08:21 | disposition home or self-care (01) ==
LOC: ANHBWCLAB 08:22
PROVIDERS: PCP Nurse Practitioner Adult Health; Visit Provider Nurse Practitioner Adult Health
DX: M79.641 Pain in right hand (principal); E78.5 Hyperlipidemia, unspecified; Z12.5 Encounter for screening for malignant neoplasm of prostate
CPT/HCPCS: 36415; 73130; 80053; 80061; 84153; 85027; G0103

== ENCOUNTER 2025-03-24 13:13 | Outpatient (CLI) | payer OTHER, SELFPAY ==
--- NOTE | ~2025-03-24 | XR_ITS ---
EXAMINATION: XR foot RT 2V, 03/24/2025 13:13 BUCKET HOOKER HISTORY: rt plantar heel pain x 2 months COMPARISON: No comparisons available. Findings: No acute fracture or malalignment. No significant degenerative changes. Soft tissues unremarkable. Impression: No acute fracture or malalignment. Reviewed, dictated and finalized at location P. ET HOOKER Impression: No acute fracture or malalignment.
== END 2025-03-24 13:14 | disposition home or self-care (01) ==
LOC: ANHBWCIMG 13:13
PROVIDERS: PCP Nurse Practitioner Adult Health; Visit Provider Nurse Practitioner Adult Health
DX: M79.671 Pain in right foot (principal)
CPT/HCPCS: 73620